=== PATIENT | female | born 1930 | race Caucasian/White ===

== ENCOUNTER → 2016-08-24 | Outpatient (CLI) | payer OTHER, MEDICARE ==
[~2016-08-24] MED LIST: AMLO-110 PO; AMLO-114 PO; CALC-20 PO; CALC600T PO; CARV6.252 PO; CPR/500 PO; FRRS300 PO; FRS/40 PO; KFL500 PO; LEVO100T7 PO; LEVO112T4 PO; MTR500 PO; MULT-506 PO; OXYC1TAB3 PO; PRVC/20 PO; WARF-283 PO
[2016-08-24 12:59] LABS: THYROID STIMULATING HORMONE 2.29 uIu/ml (0.300-4.500)
== END | disposition home or self-care (01) ==
LOC: C.LABBFT 11:06
PROVIDERS: ATTEND Physician Assistant Medical
DX: R19.7 Diarrhea, unspecified (principal)

== ENCOUNTER → 2016-08-25 | Outpatient (CLI) | payer OTHER, MEDICARE | END | disposition home or self-care (01) | LOC: C.LABSPEC 12:25 | PROVIDERS: ATTEND Physician Assistant Medical | DX: R19.7 Diarrhea, unspecified (principal) ==

== ENCOUNTER → 2016-09-19 | Outpatient (CLI) | payer OTHER, MEDICARE ==
[2016-09-19 12:38] LABS: CHOLESTEROL/HDL RATIO 2.2
== END | disposition home or self-care (01) ==
LOC: C.LABBFT 11:03
PROVIDERS: ATTEND Internal Medicine
DX: E78.00 Pure hypercholesterolemia, unspecified (principal)

== ENCOUNTER → 2016-10-20 | Outpatient (CLI) | payer OTHER, MEDICARE ==
[2016-10-20 17:26] LABS: HEMATOCRIT 42.3 % (37-47); MEAN CELL VOLUME 93.4 fL (80-100); MEAN CORPUSCULAR HEMOGLOBIN 31.6 pg (25-34); MEAN CORPUSCULAR HGB CONC 33.8 g/dl (32-36); MEAN PLATELET VOLUME 10.8 fL (7.4-10.4); PLATELET COUNT 194 K/uL (130-400); RED BLOOD COUNT 4.53 M/uL (4.2-5.4); WHITE BLOOD COUNT 3.95 K/uL (4.8-10.8)
[2016-10-20 17:36] LABS: PARTIAL THROMBOPLASTIN RATIO 1.4; PROTHROMBIN TIME (PATIENT) 22.2 SECONDS (9.0-12.0)
[2016-10-20 17:44] LABS: BLOOD UREA NITROGEN 17 mg/dl (7-18); BUN/CREATININE RATIO 17.9 (10-20); CALCIUM 8.6 mg/dl (8.5-10.1); CARBON DIOXIDE 33 mmol/L (21-32); CHLORIDE 105 mmol/L (98-107); CREATININE 0.93 mg/dl (0.60-1.20); GLUCOSE 103 mg/dl (70-99); POTASSIUM 4.2 mmol/L (3.5-5.1); SODIUM 142 mmol/L (136-145)
== END | disposition home or self-care (01) ==
LOC: C.LABBFT 15:13
PROVIDERS: ATTEND Internal Medicine Cardiovascular Disease
DX: Z01.810 Encounter for preprocedural cardiovascular examination (principal)

== ENCOUNTER 2016-11-03 06:08 | Observation (INO) | payer OTHER, MEDICARE ==
[~2016-11-03] VITALS: Ht 167.6 cm; Wt 83.9 kg
[~2016-11-03 06:08] MED LIST changes: -AMLO-114 PO; -CALC-20 PO; -CARV6.252 PO; +CEFAZOLIN 1000MG/55 ML D5W IV SCH; -CPR/500 PO; -FRRS300 PO; -FRS/40 PO; -KFL500 PO; +LACTATED RINGER'S 1000ML 1,000 ML IV SCH; -LEVO112T4 PO; -MTR500 PO
[2016-11-03] MEDS ORDERED: FRS/40 PO (06:48)
[2016-11-03 06:51] VITALS: BP_SYST 200; BP_SYST 201; BP_DIAS 74; PULSE 56; TEMP 36.5; O2SAT 95
[2016-11-03 07:06] LABS: INR 1.1 (0.9-1.1); PROTHROMBIN TIME (PATIENT) 11.3 SECONDS (9.0-12.0)
[2016-11-03] MEDS ORDERED: BACITRACIN OINT 0.9 GM PKT ONE (07:31)
[2016-11-03] MEDS ORDERED: LIDOCAINE HCL 1% 20 ML VIAL ONE (07:31)
[2016-11-03] MEDS ORDERED: BACITRACIN 50000 UNIT VIAL ONE (07:31)
--- NOTE | 2016-11-03 08:35 | Procedure Note ---
Pre-Mod Sedation Assessment General Date of Moderate Sedation: Nov 03, 2016. Vital Signs: Vital Signs Past 12 Hours Date Time Temp Pulse Resp B/P (MAP) Pulse Ox O2 Delivery O2 Flow Rate FiO2 11/03/16 06:51 36.5 56 22 201/74 (116) 95 Room Air Review Cardiovascular: regular rate, rhythm, + systolic murmur Abdomen: normal bowel sounds, non tender Lungs: lungs clear Pre-Sedation Airway Assessment Oral Cavity: WNL Short Thick Neck: No Hx of Sleep Apnea: No Smoking Status: Never Smoker Procedure Planning Contraindications-for Mod Sed: None Yes Notes The planned sedation has been discussed with the patient and consent obtained. I have identified the patient, determined the appropriateness of sedation and have assessed the patient immediately prior to the procedure. All medicine(s) and interventions are by my order.
[2016-11-03] MEDS ORDERED: MIDAZOLAM HCL 5 MG/ML 1 ML VIAL ONE (08:54)
[2016-11-03] MEDS ORDERED: FENTANYL CITRATE INJ 50 MCG/1 ML 2 ML VIAL ONE (08:54)
--- NOTE | 2016-11-03 10:10 | Cardiology Procedure Brief Nt ---
Preliminary Cardiology Note Procedure Date Nov 03, 2016. Pre-Procedure Diagnosis sick sinus syndrome Post-Procedure Diagnosis same Procedure(s) Performed Left subclavian venogram Dual chamber pacemaker implantation [employer] Specialist Dr. Mack Sales Account Coordinator(s) none Estimated Blood Loss 50 cc Preliminary Findings Good lead position, good measurements Recommendations Monitor overnight Specimens None Anesthesia local with sedation Complication(s) None Disposition PCU
[2016-11-03] MEDS ORDERED: ACETAMINOPHEN 325 MG TAB PO PRN (10:15)
[2016-11-03] MEDS ORDERED: ACETAMINOPHEN/CODEINE 300/30MG TAB PO PRN (10:15)
--- NOTE | 2016-11-03 10:16 | Procedure Note ---
Post-Mod Sedation Assessment General Date of Moderate Sedation Nov 03, 2016. Vital Signs: Vital Signs Past 12 Hours Date Time Temp Pulse Resp B/P (MAP) Pulse Ox O2 Delivery O2 Flow Rate FiO2 11/03/16 10:03 16 153/76 (101) 98 Nasal Cannula 6 11/03/16 06:51 36.5 56 22 201/74 (116) 95 Room Air Review - Discharge Criteria Vital Signs Stable: Yes Alert/Oriented/Conversant: Yes Returned to Baseline Mental St: Yes Nausea Absent/Minimal: Yes Pain/Discomfort/Absent/Minimal: Yes Normal/Baseline Respirations: Yes Active Bleeding?: No
[2016-11-03 11:22] VITALS: BP 174/75; PULSE 60; TEMP 36.6; O2SAT 91; Ht 167.6 cm; Wt 83.9 kg
[2016-11-03 11:31] VITALS: BP 170/76; PULSE 60; TEMP 36.5; O2SAT 93
[2016-11-03] MEDS ORDERED: IV FLUIDS COMPLETED PRN (11:45)
--- NOTE | 2016-11-03 13:16 | OPERATIVE REPORT ---
DATE OF OPERATION: 11/03/2016 AMBULATORY OPERATIVE REPORT PREOPERATIVE DIAGNOSIS: Sick sinus syndrome (sinus bradycardia and atrial fibrillation). POSTOPERATIVE DIAGNOSIS: Same. PROCEDURES: 1. Left subclavian venogram. 2. Dual chamber pacemaker implantation. SURGEON: Fuentes Mack M.D. ANESTHESIA: Local with sedation. HISTORY: This is an 86-year-old woman who has a history of paroxysmal atrial fibrillation as well as sinus bradycardia. Atrial fibrillation has been documented on several occasions, she is maintained on warfarin. Generally, she is in sinus rhythm; however, with bradycardia. Holter monitoring done on 08/29/2016 showed a heart rate range from 25 beats per minute to 61 with an average of 42 beats per minute, 34 pauses in excess of 2.5 seconds, the longest RR interval being 4.2 seconds. She is also less active than she has been in the past, possibly due to bradycardia. We discussed pacemaker implantation, she wanted to think about it but has decided to go ahead. She is therefore brought to laboratory for pacemaker implantation. OPERATION AND FINDINGS: After obtaining informed consent for the procedure, she was brought to the laboratory on the morning of 11/03/2016, being n.p.o. after midnight. She was identified in the laboratory, prepped and draped in standard sterile manner for a left-sided pacemaker implantation. The left prepectoral region was anesthetized with 1% lidocaine local anesthetic and left subclavian venipuncture was attempted by percutaneous technique. The subclavian artery was entered twice, pressure was held and there appeared to be no complication. X-ray dye was therefore injected via the left arm IV site to opacify the left subclavian vein which was patent but somewhat lower than expected. Once identified, left subclavian venipuncture was performed without difficulty and a guidewire placed through the left subclavian vein into the superior vena cava. The area was further infiltrated with 1% lidocaine local anesthetic and a 6 cm incision was made parallel to the left clavicle and 2 cm below it and carried down to the anterior pectoralis fascia. A pacemaker pocket was formed by blunt dissection anterior to the pectoralis fascia and a bacitracin-soaked sponge was placed in the pocket. An 8-[place] Medtronic lead introducer was placed over the guidewire into the left subclavian vein, the dilator and guidewire were removed and a bipolar active fixation steroid-tipped ventricular lead was advanced through the introducer into the superior vena cava. The guidewire was placed through the introducer and introducer stripped away from lead and guidewire. Another 8-[place] Medtronic lead introducer was placed over the guidewire into the left subclavian vein, the dilator and guidewire were removed and a bipolar active fixation steroid-tipped atrial lead was advanced through the introducer into the superior vena cava. The guidewire was placed through the introducer and introducer stripped away from lead and guidewire. Using a curved stylette, the ventricular lead was advanced through the right ventricular outflow tract into the pulmonary artery and then using a straight stylette was positioned in the right ventricular apex. Once in position, the ventricular pacing threshold was evaluated in bipolar configuration at a pulse width of 0.5 milliseconds. The final ventricular pacing threshold was 0.4 volts with a current of 0.9 milliamp, 5-volt lead impedance was 945 ohms and R-waves were sensed at 4.9 millivolts. Diaphragmatic pacing was not present with a 10-volt bipolar output. The atrial lead was then positioned in the region of the atrial appendage and screw extended, fixing the lead in position. Atrial pacing threshold was evaluated in bipolar configuration at a pulse width of 0.5 milliseconds. Final atrial pacing threshold was 1.0 volts with a current of 1.6 milliamp, 5-volt lead impedance was 729 ohms and P-waves were sensed at 1.1 millivolts. Diaphragmatic pacing was not present with 10-volt bipolar output. Once leads were in position, they were attached to the anterior pectoralis fascia using 2 sutures of 2-0 silk around each lead collar. The bacitracin-soaked sponge was removed from the pocket, the guidewire was removed from the left subclavian vein and hemostasis was obtained. The pacemaker (Medtronic Advisa DR) was attached to the leads and found to be functioning normally. It was placed in the pocket with the leads coiled beneath it and the incision was closed with a running double subcutaneous closure of V-Loc absorbable suture, followed by running subcuticular skin closure of 4-0 V-Loc absorbable suture. Bacitracin ointment was placed on incision and a pressure dressing applied. The patient tolerated the procedure well, there were no complications and estimated blood loss was 50 mL. The patient returned to the telemetry unit for monitoring. The atrial lead is a Medtronic model 5076, serial #[id number] and is a bipolar active fixation steroid-tipped MRI compatible lead. The ventricular lead is a Medtronic model 5076, serial #[id number] and is a bipolar active fixation steroid-tipped MRI compatible lead. The pacemaker is a Medtronic Advisa DR MRI SureScan model A2DR01, serial #[id number]. The pacemaker was reprogrammed in the laboratory to final settings. JAYCEE
[2016-11-03 15:13] VITALS: BP 161/68; PULSE 60; TEMP 36.7; O2SAT 95
[2016-11-03] MEDS: CEFAZOLIN IV 2,000 MG in DEXTROSE 5% 50ML 50 ML IV SCH ×2 (15:53→23:40)
[2016-11-03 19:41] VITALS: BP 152/74; PULSE 62; TEMP 36.8; O2SAT 94
[2016-11-03] MEDS ORDERED: PRAVASTATIN SOD 20 MG TAB PO SCH (21:00)
[2016-11-03] MEDS ORDERED: WARFARIN SOD 4 MG TAB PO SCH (21:00)
[2016-11-03 23:38] VITALS: BP 166/74; PULSE 58; TEMP 36.8; O2SAT 93
[2016-11-04 04:05] VITALS: BP 181/73; PULSE 62; TEMP 36.7; O2SAT 95
[2016-11-04] MEDS ORDERED: LEVOTHYROXINE 100 MCG TAB PO SCH (06:00)
[2016-11-04 06:03] VITALS: BP 179/80
[2016-11-04 06:09] LABS: INR 1.1 (0.9-1.1); PROTHROMBIN TIME (PATIENT) 11.4 SECONDS (9.0-12.0)
--- NOTE | 2016-11-04 07:00 | DIAGNOSTIC IMAGING REPORT ---
CHEST 2 VIEWS ROUTINE CLINICAL HISTORY: Chest x-ray status post pacemaker placement COMPARISON STUDY: 11/25/2015 FINDINGS: The heart is the upper limits of normal in size. There has been interval placement of a left subclavian dual-chamber central venous pacemaker. There is no pneumothorax. The electrode position is unremarkable. There is no failure. There are no pleural effusions. There is stable aortic tortuosity/ectasia. Scattered chronic interstitial densities remain similar.[ IMPRESSION: No evidence of pneumothorax status post placement of a dual-chamber left subclavian central venous pacemaker. Electronically signed by: Ger Smith M.D. 11/04/2016 6:59 AM Dictated Date/Time: 11/04/2016 6:58 AM
[2016-11-04 07:51] VITALS: BP 184/73; PULSE 61; TEMP 36.4; O2SAT 95
[2016-11-04] MEDS: CEFAZOLIN IV 2,000 MG in DEXTROSE 5% 50ML 50 ML IV SCH (08:39)
[2016-11-04] MEDS ORDERED: AMLODIPINE BESYLATE 5 MG TAB PO SCH (09:00)
[2016-11-04] MEDS ORDERED: FUROSEMIDE 40 MG TAB PO SCH (09:00)
--- NOTE | 2016-11-04 10:22 | Discharge Instructions ---
Discharge Instructions Date of Service Nov 04, 2016. Admission Sick Sinus Syndrome Discharge Discharge Diagnosis / Problem: S/P Dual-chamber pacemaker implantation Discharge Goals Goal(s): Improve disease control Activity Recommendations Activity Limitations: as noted below ACTIVITY RECOMMENDATIONS: * Do not raise affected arm over head for 2 weeks. SPECIAL CARE INSTRUCTIONS: * If bleeding occurs, apply direct pressure to area for 5 minutes. * Call your doctor if you have severe pain, fever, drainage or bleeding at site. * Keep dressing on and dry for 48 hours then remove. * Keep any scheduled doctor's appointment. * Implant Card - hand held device with website information given. SKIN IRRITATION: * You may experience some redness and/or swelling in the area where radiation was administered. If any skin irritation occurs, please contact your family physician. FOLLOW UP VISIT: 11/07/16 @ 10:00 am Check your INR on 11/09/16 . Current Hospital Diet Patient's current hospital diet: AHA Diet (Heart Healthy) Discharge Diet Recommended Diet: AHA Diet (Heart Healthy) Pending Studies Studies pending at discharge: no Laboratory Results Lipid Panel Test 09/19/16 11:07 Range/Units Triglycerides Level 99 0-150 mg/dl Cholesterol Level 174 0-200 mg/dl HDL Cholesterol 78 mg/dl Cholesterol/HDL Ratio 2.2 LDL Cholesterol, Calculated 76 mg/dl Medical Emergencies . Who to Call and When: Medical Emergencies: If at any time you feel your situation is an emergency, please call 911 immediately. . Non-Emergent Contact Non-Emergency issues call your: Sand Cutting Machine Operator . . "Provider Documentation" section prepared by Cindi Simmons. . VTE Core Measure Inpt VTE Proph given/why not?: Treatment not indicated
[2016-11-04] MEDS ORDERED: AMLO-114 PO (10:35)
[2016-11-04] MEDS ORDERED: CARV6.252 PO (10:35)
[2016-11-04 11:18] VITALS: BP 160/76; PULSE 60; TEMP 36.6; O2SAT 95
--- NOTE | 2016-11-04 12:40 | Discharge Summary ---
Discharge Summary Admission Date: Nov 03, 2016 at 10:13 Discharge Date: Nov 04, 2016 Discharge Disposition: Home Primary Diagnosis: Sick sinus syndrome Procedures: Dual-chamber pacemaker implantation Discharge Instructions Last Recorded Wt (Kilograms): 83.900 Activity Recommendations: limitations as noted below Diet At Discharge: resume previous diet Allergies: Coded Allergies: Solifenacin (Verified Allergy, Intermediate, "throat and tongue swelled up ", 11/03/16) Rofecoxib (Verified Allergy, Unknown, RASH, 11/03/16) Additional Instructions: ACTIVITY RECOMMENDATIONS: * Do not raise affected arm over head for 2 weeks. SPECIAL CARE INSTRUCTIONS: * If bleeding occurs, apply direct pressure to area for 5 minutes. * Call your doctor if you have severe pain, fever, drainage or bleeding at site. * Keep dressing on and dry for 48 hours then remove. * Keep any scheduled doctor's appointment. * Implant Card - hand held device with website information given. SKIN IRRITATION: * You may experience some redness and/or swelling in the area where radiation was administered. If any skin irritation occurs, please contact your family physician. FOLLOW UP VISIT: Keep any scheduled doctor appointments. Special Care: Call your doctor if: * Temperature above 101 degrees * Pain not relieved by pain medicine ordered * There is increased drainage or redness from any incision * You have any unanswered questions or concerns. Avoid all tobacco products. If you need help to stop smoking, call [place]'s FREE QUITLINE at . This is a free call. Admission HPI She returns now continuing to feel relatively well. She denies symptoms of lightheadedness, dizziness, presyncope or syncope and additionally has no difficulty with exertion including chest discomfort, shortness of breath or undue fatigue. She does admit that she may be slowing down more than before and she may just be accommodating to the inability to perform physical activities. A 24-hour Holter monitor was performed on 08/29/2016. This showed a heart rate range from 25 bpm to 61 bpm with an average of 42 bpm. 34 pauses in excess of 2- 1/2 seconds were observed, these were sinus pauses. There was one RR interval of 4.2 seconds. With this severe and progressive bradycardia we felt the pacemaker was indicated. She is therefore scheduled for pacemaker implantation today. Admission Physical Exam Constitutional: Alert, cooperative and in no distress. HEENT: Unremarkable Neck: No jugular venous distention, carotid pulses are normal and equal bilaterally without bruits. Pulmonary: Clear to auscultation bilaterally. Cardiac: Regular slow rhythm with no murmur, gallop or rub. Abdomen: Soft, nontender with normal bowel sounds. Extremities: No edema. Distal pulses intact. Neurologic: No focal findings. Gait is steady. Skin: No rash, ecchymoses or petechiae. Hospital Course Patient is an 86-year-old female with a history of atrial fibrillation and sick sinus syndrome who underwent dual-chamber pacemaker implantation on 11/03/[address] Mack. She tolerated the procedure well. Device check the following day showed excellent sensing and pacing characteristics. CXR showed no evidence of pneumothorax. She was discharged home on 11/04/16 in stable condition. She was hypertensive throughout her hospital stay, therefore, Carvedilol 6.25 mg BID was prescribed, which she will begin as an outpatient. Her Coumadin was restarted, and she will have an INR check in 5 days. She will also have incision check in 2 days and device check in 1 month. Total time spent on discharge = This includes examination of the patient, discharge planning, medication reconciliation, and communication with other providers.
--- NOTE | 2016-11-04 12:48 | Cardiology Follow-Up ---
Subjective Date of Service: Nov 04, 2016. Pt evaluation today including: conversation w/ patient, physical exam, chart review, lab review, review of studies, review of inpatient medication list, conversation w/ attending History of Present Illness She is feeling well and is anxious to go home. She has not had any bleeding from her incision site. She denies chest pain, shortness of breath, palpitations, or lightheadedness. Social History Smoking Status: Never Smoker History of Alcohol Use: No Objective Vital Signs Past 12 Hours Date Time Temp Pulse Resp B/P (MAP) Pulse Ox O2 Delivery O2 Flow Rate FiO2 11/04/16 11:18 36.6 60 18 160/76 (104) 95 Room Air 11/04/16 11:09 36.4 61 20 95 Room Air 11/04/16 08:00 Room Air 11/04/16 07:51 36.4 61 20 184/73 (110) 95 Room Air 11/04/16 06:03 179/80 (113) 11/04/16 04:05 36.7 62 18 181/73 (109) 95 Room Air 11/04/16 04:00 Room Air Last Recorded Weight-Kilograms: 83.900 Intake & Output 8-Hour Column 11/04/16 11/05/16 11/05/16 16:00 00:00 08:00 Intake Total 360 ml Output Total 400 ml Balance -40 ml 24-Hour Column 11/05/16 08:00 Intake Total 360 ml Output Total 400 ml Balance -40 ml Physical Exam Constitutional: General Apperance: heathly-appearing Level of Distress: NAD Lungs: Respiratory effort: good air movement Auscultation: breath sounds normal Cardiovascular: Heart Auscultation: RRR, normal S1, normal S2, no murmurs Extremities: no edema Data Laboratory Results: Last 24 Hours Test 11/04/16 05:25 Prothrombin Time 11.4 SECONDS Prothromb Time International Ratio 1.1 CXR: No evidence of pneumothorax status post placement of a dual-chamber left subclavian central venous pacemaker. EKG: Atrial paced rhythm with prolonged AV conduction. 60 bpm. Left axis deviation. LVH with QRS widening and repolarization abnormality. Device check: Functioning properly with excellent sensing and pacing characteristics. Assessment and Plan Patient is s/p dual-chamber pacemaker implantation. She is feeling well this morning with no complaints. CXR shows no pneumothorax. Device is functioning normally. Will plan discharge home today, and she will follow-up for wound check and device check as an outpatient. A script for Carvedilol has been sent to her pharmacy given her elevated blood pressure readings throughout the hospitalization. Procedures: Dual-chamber pacemaker implantation
[2017-04-23] MEDS ORDERED: KFL500 PO (14:42)
[2017-04-23] MEDS ORDERED: FRRS300 PO (14:42)
== END 2016-11-04 15:44 | disposition home or self-care (01) ==
LOC: C.ACU 06:08 → CANRESERV 09:56 → ENRESERV 09:56 → C.2T 10:13
PROVIDERS: ADMIT Internal Medicine Cardiovascular Disease; ATTEND Internal Medicine Cardiovascular Disease
DX: I49.5 Sick sinus syndrome (principal); I48.0 Paroxysmal atrial fibrillation; M19.90 Unspecified osteoarthritis, unspecified site; E78.00 Pure hypercholesterolemia, unspecified; I10 Essential (primary) hypertension; E03.9 Hypothyroidism, unspecified; G25.81 Restless legs syndrome; Z79.01 Long term (current) use of anticoagulants; Z86.19 Personal history of other infectious and parasitic diseases; Z96.659 Presence of unspecified artificial knee joint; Z82.49 Family history of ischemic heart disease and other diseases of the circulatory system

== ENCOUNTER → 2017-01-31 | Outpatient (CLI) | payer OTHER, MEDICARE ==
[~2017-01-31] MED LIST changes: -AMLO-110 PO; +AMLO-114 PO; +CARV6.252 PO; -CEFAZOLIN 1000MG/55 ML D5W IV SCH; +FRS/40 PO; -LACTATED RINGER'S 1000ML 1,000 ML IV SCH; -OXYC1TAB3 PO
[2017-01-31 17:33] LABS: ALT/SGPT 16 U/L (12-78); BLOOD UREA NITROGEN 20 mg/dl (7-18); CALCIUM 9.8 mg/dl (8.5-10.1); CARBON DIOXIDE 30 mmol/L (21-32); CHLORIDE 103 mmol/L (98-107); CHOLESTEROL 149 mg/dl (0-200); GLUCOSE 86 mg/dl (70-99); POTASSIUM 3.8 mmol/L (3.5-5.1); SODIUM 138 mmol/L (136-145)
[2017-01-31 17:36] LABS: ALB/GLOB RATIO 0.9 (0.9-2); ALKALINE PHOSPHATASE 105 U/L (45-117); AST/SGOT 21 U/L (15-37); CHOLESTEROL/HDL RATIO 2.4; HDL CHOLESTEROL 61 mg/dl; LDL CHOLESTEROL CALCULATED 70 mg/dl; TRIGLYCERIDES 88 mg/dl (0-150); VERY LOW DENSITY LIPOPROT CALC 18 mg/dl
== END | disposition home or self-care (01) ==
LOC: C.LABBFT 11:39
PROVIDERS: ATTEND Internal Medicine
DX: E78.00 Pure hypercholesterolemia, unspecified (principal); E03.9 Hypothyroidism, unspecified; I10 Essential (primary) hypertension; I48.91 Unspecified atrial fibrillation

== ENCOUNTER → 2017-03-30 | Outpatient (CLI) | payer OTHER, MEDICARE | END | disposition home or self-care (01) | LOC: C.LABBFT 12:20 | PROVIDERS: ATTEND Internal Medicine | DX: R19.7 Diarrhea, unspecified (principal) ==

== ENCOUNTER → 2017-03-30 | Outpatient (CLI) | payer OTHER, MEDICARE ==
[2017-03-30 12:44] LABS: BASO % 0.5 %; BASO ABS # 0.02 K/uL (0-0.2); COMPLETE YES; EOS % 1.3 %; LYMPH % 23.6 %; LYMPH ABS # 0.88 K/uL (1.2-3.4); MEAN CELL VOLUME 93.5 fL (80-100); MEAN CORPUSCULAR HEMOGLOBIN 31.4 pg (25-34); MEAN CORPUSCULAR HGB CONC 33.6 g/dl (32-36); MONO % 23.9 %; NEUT % 50.7 %; PLATELET COUNT 186 K/uL (130-400); RED BLOOD COUNT 4.49 M/uL (4.2-5.4); WHITE BLOOD COUNT 3.73 K/uL (4.8-10.8)
[2017-03-30 13:00] LABS: ALT/SGPT 14 U/L (12-78); BLOOD UREA NITROGEN 17 mg/dl (7-18); BUN/CREATININE RATIO 17.6 (10-20); CALCIUM 9.1 mg/dl (8.5-10.1); CARBON DIOXIDE 29 mmol/L (21-32); CHLORIDE 104 mmol/L (98-107); CREATININE 0.94 mg/dl (0.60-1.20); GLUCOSE 96 mg/dl (70-99); POTASSIUM 3.8 mmol/L (3.5-5.1); SODIUM 139 mmol/L (136-145)
[2017-03-30 13:11] LABS: ALB/GLOB RATIO 0.8 (0.9-2); ALKALINE PHOSPHATASE 104 U/L (45-117); AST/SGOT 18 U/L (15-37)
== END | disposition home or self-care (01) ==
LOC: C.LABBFT 10:12
PROVIDERS: ATTEND Physician Assistant Medical
DX: R19.7 Diarrhea, unspecified (principal)

== ENCOUNTER → 2017-04-19 | Outpatient (CLI) | payer OTHER, MEDICARE ==
[~2017-04-19] MED LIST changes: +CALC-20 PO; +CPR/500 PO; +FRRS300 PO; +KFL500 PO; +LEVO112T4 PO; +MTR500 PO
[2017-04-19 13:21] LABS: MEAN CELL VOLUME 92.9 fL (80-100); MEAN CORPUSCULAR HEMOGLOBIN 30.9 pg (25-34); MEAN CORPUSCULAR HGB CONC 33.2 g/dl (32-36); MEAN PLATELET VOLUME 10.2 fL (7.4-10.4); PLATELET COUNT 233 K/uL (130-400); RED BLOOD COUNT 3.66 M/uL (4.2-5.4); WHITE BLOOD COUNT 5.03 K/uL (4.8-10.8)
[2017-04-19 13:44] LABS: PROTHROMBIN TIME (PATIENT) 57.5 SECONDS (9.0-12.0)
== END | disposition home or self-care (01) ==
LOC: C.LAB1850 11:58
PROVIDERS: ATTEND Physician Assistant
DX: R19.7 Diarrhea, unspecified (principal)

== ENCOUNTER 2017-04-20 13:16 | Inpatient (IN) | payer OTHER, MEDICARE ==
[2017-04-20] VITALS (11 sets, daily range): BP systolic 131–150; BP diastolic 59–85; PULSE 60–70; TEMP 36.5–37.1; O2SAT 94–98; Ht 167.6 cm; Wt 87.9 kg
[~2017-04-20] VITALS: Ht 167.6 cm; Wt 87.9 kg
[~2017-04-20 13:16] MED LIST changes: -CALC-20 PO; -CPR/500 PO; -FRRS300 PO; -KFL500 PO; -LEVO112T4 PO; -MTR500 PO
[2017-04-20] MEDS ORDERED: SODIUM CHLORIDE 0.9% 1000ML 1,000 ML IV STA (13:31)
[2017-04-20] MEDS ORDERED: LEVO112T4 PO (14:10)
[2017-04-20] MEDS ORDERED: MTR500 PO (14:10)
[2017-04-20] MEDS ORDERED: CALC-20 PO (14:10)
[2017-04-20] MEDS ORDERED: CPR/500 PO (14:10)
--- NOTE | 2017-04-20 14:16 | DIAGNOSTIC IMAGING REPORT ---
CHEST ONE VIEW PORTABLE CLINICAL HISTORY: EVALUATE GI BLEED chest pain COMPARISON STUDY: 11/03/2016 FINDINGS: Lungs are clear. A permanent bipolar cardiac pacemaker. Diaphragms are smooth. Costophrenic angles sharp. IMPRESSION: No acute process. The above report was generated using voice recognition software. It may contain grammatical, syntax or spelling errors. Electronically signed by: Slava Regalado M.D. 04/20/2017 2:15 PM Dictated Date/Time: 04/20/2017 2:00 PM
[2017-04-20 14:22] LABS: HEMATOCRIT 24.4 % (37-47); MEAN CELL VOLUME 92.1 fL (80-100); MEAN CORPUSCULAR HEMOGLOBIN 31.7 pg (25-34); MEAN CORPUSCULAR HGB CONC 34.4 g/dl (32-36); MEAN PLATELET VOLUME 9.9 fL (7.4-10.4); PLATELET COUNT 214 K/uL (130-400); RED BLOOD COUNT 2.65 M/uL (4.2-5.4); WHITE BLOOD COUNT 5.96 K/uL (4.8-10.8)
[2017-04-20 14:25] LABS: PARTIAL THROMBOPLASTIN RATIO 1.7; PROTHROMBIN TIME (PATIENT) 59.6 SECONDS (9.0-12.0)
[2017-04-20 14:27] LABS: BUN/CREATININE RATIO 16.1 (10-20); CALCIUM 8.5 mg/dl (8.5-10.1); CREATININE 1.09 mg/dl (0.60-1.20); POTASSIUM 3.4 mmol/L (3.5-5.1)
[2017-04-20 14:28] LABS: BASO ABS # 0.06 K/uL (0-0.2); COMPLETE YES; EOS % 0.3 %; IG% 0.3 %; LYMPH % 16.6 %; LYMPH ABS # 0.99 K/uL (1.2-3.4); MONO % 11.4 %; NEUT % 70.4 %
[2017-04-20] MEDS ORDERED: PHYTONADIONE INJ 10 MG in SODIUM CHLORIDE 0.9% 50ML 50 ML IV ONE (14:30)
[2017-04-20 14:36] LABS: INR 5.2 (0.9-1.1)
[2017-04-20] MEDS ORDERED: SODIUM CHLORIDE 0.9% 1000ML 1,000 ML IV SCH (15:17)
[2017-04-20] MEDS ORDERED: ACETAMINOPHEN 325 MG TAB PO PRN (15:30)
[2017-04-20] MEDS ORDERED: POLYETHYLENE (MIRALAX) 17 GM PACK PO PRN (15:30)
[2017-04-20] MEDS ORDERED: ALUMINUM/MAGNESIUM/SIMETH (MAALOX MAX) 30 ML UDC PO PRN (15:30)
[2017-04-20] MEDS ORDERED: MAGNESIUM HYDROXIDE SUSP 30 ML UDC PO PRN (15:30)
[2017-04-20] MEDS ORDERED: ONDANSETRON INJ 2 MG/ML 2 ML VIAL IV PRN (15:30)
--- NOTE | 2017-04-20 15:37 | History and Physical ---
History & Physical Date & Time of Service: Apr 20, 2017 at 15:34 Chief Complaint: Bloody Bowels-Reffered By Primary Care Physician: Rafael Glez M.D. History of Present Illness Source: patient Ms. Pascual is an 86 y/o female with PMHx of Paroxysmal Atrial Fibrillation, Sick Sinus Syndrome S/P Pacemaker, HTN, HLD, Hypothyroidism, and CKD Stage III who presents to the ED c/o hematochezia that started Monday. Patient reports she has had ongoing loose stool/diarrhea for approx 1 month. She was treated with Cipro and Flagyl which was recently stopped on 04/18. Outpatient labs without evidence of C. diff or infectious findings. On Monday night she developed gross hematochezia x 2 episodes. She stopped her Coumadin that night but had 5 episodes on Monday. She continued to hold her Coumadin and has had 2 episodes today. She sensed her INR was elevated and stated she ate 2 bowls of broccoli to help reduce the number. She was seen by her PCP for labs yesterday which Hgb was 11.3 and currently down to 8.4 in the ED. Her INR is 5.2. She complains of generalized fatigue but denies lightheadedness/dizziness, SOB, or chest pain. She began having dry heaves this AM which have subsided. She had a colonoscopy approx [address] Dickson and reports she had early signs of diverticulosis. She thinks she has had hemorrhoids on and off but never had issues with them. She denies H/O GI disorders such as Crohns or UC. She denies any abdominal pain and no pain with defecation. Past Medical/Surgical History 1. Paroxysmal Atrial Fibrillation 2. Sick Sinus Syndrome S/P Pacer 3. HTN 4. HLD 5. Hypothyroidism 6. CKD Stage III Family History FHx: cancer FHx: heart disease Social History Smoking Status: Never Smoker Smokeless Tobacco Use: No Alcohol Use: none Drug Use: none Marital Status: Immunizations History of Influenza Vaccine: Yes History of Tetanus Vaccine?: Yes History of Pneumococcal: No History of Hepatitis B Vaccine: No Multi-Drug Resistant Organisms History of MDRO: No Allergies Coded Allergies: Solifenacin (Verified Allergy, Intermediate, "throat and tongue swelled up ", 04/20/17) Rofecoxib (Verified Allergy, Unknown, RASH, 04/20/17) Home Medications Scheduled Amlodipine (Norvasc), 10 MG PO DAILY Calcium Carbonate-Vitamin D (Calcium 600 + D), 1 TAB PO DAILY Carvedilol (Coreg), 1 TAB PO BID Furosemide (Lasix), 20 MG PO QAM Levothyroxine Sodium (Levothyroxine Sodium), 112 MCG PO DAILY Multivitamin (Multivitamin), 1 TAB PO DAILY Pravastatin Sod (Pravastatin Sodium), 20 MG PO HS Warfarin Sodium (Warfarin Sodium), 4 MG PO HS Review of Systems Constitutional: + fatigue, No fever, No chills Respiratory: No cough, No shortness of breath Cardiovascular: No chest pain, No palpitations Abdomen: + nausea (dry heaves), + diarrhea, + GI bleeding (hematochezia), No pain, No vomiting, No constipation Musculoskeletal: No swelling, No calf pain Genitourinary - Female: + problem reported (cystocele), No dysuria Hematologic / Lymphatic: No clotting problems Integumentary: No rash, No new/changing skin lesions Physical Exam Vital Signs Date Time Temp Pulse Resp B/P (MAP) Pulse Ox O2 Delivery O2 Flow Rate FiO2 04/20/17 15:01 61 18 185/85 97 04/20/17 14:56 63 19 98 04/20/17 14:51 154/62 04/20/17 14:41 64 20 97 04/20/17 14:26 60 18 97 04/20/17 14:11 59 14 97 04/20/17 14:06 61 19 97 04/20/17 14:01 56 24 96 04/20/17 13:58 65 04/20/17 13:56 142/60 04/20/17 13:47 99 Room Air 04/20/17 13:23 36.9 71 18 119/81 99 Room Air General Appearance: WD/WN, no apparent distress Head: normocephalic, atraumatic Eyes: sclerae normal ENT: hearing grossly normal Neck: supple, no JVD, trachea midline Respiratory/Chest: lungs clear, normal breath sounds, no respiratory distress, no accessory muscle use Cardiovascular: regular rate, rhythm, + systolic murmur Abdomen/GI: normal bowel sounds, non tender, soft Extremities/Musculoskelatal: no calf tenderness, no pedal edema Neurologic/Psych: alert, oriented x 3 Skin: normal color, warm/dry Diagnostics Laboratory Results Results Past 24 Hours Test 04/20/17 13:48 Range/Units White Blood Count 5.96 4.8-10.8 K/uL Red Blood Count 2.65 4.2-5.4 M/uL Hemoglobin 8.4 12.0-16.0 g/dL Hematocrit 24.4 37-47 % Mean Corpuscular Volume 92.1 80-100 fL Mean Corpuscular Hemoglobin 31.7 25-34 pg Mean Corpuscular Hemoglobin Concent 34.4 32-36 g/dl Platelet Count 214 130-400 K/uL Mean Platelet Volume 9.9 7.4-10.4 fL Neutrophils (%) (Auto) 70.4 % Lymphocytes (%) (Auto) 16.6 % Monocytes (%) (Auto) 11.4 % Eosinophils (%) (Auto) 0.3 % Basophils (%) (Auto) 1.0 % Neutrophils # (Auto) 4.19 1.4-6.5 K/uL Lymphocytes # (Auto) 0.99 1.2-3.4 K/uL Monocytes # (Auto) 0.68 0.11-0.59 K/uL Eosinophils # (Auto) 0.02 0-0.5 K/uL Basophils # (Auto) 0.06 0-0.2 K/uL RDW Standard Deviation 55.4 36.4-46.3 fL RDW Coefficient of Variation 16.4 11.5-14.5 % Immature Granulocyte % (Auto) 0.3 % Immature Granulocyte # (Auto) 0.02 0.00-0.02 K/uL Prothrombin Time 59.6 9.0-12.0 SECONDS Prothromb Time International Ratio 5.2 0.9-1.1 Activated Partial Thromboplast Time 43.6 21.0-31.0 SECONDS Partial Thromboplastin Ratio 1.7 Sodium Level 140 136-145 mmol/L Potassium Level 3.4 3.5-5.1 mmol/L Chloride Level 105 98-107 mmol/L Carbon Dioxide Level 24 21-32 mmol/L Anion Gap 11.0 3-11 mmol/L Blood Urea Nitrogen 18 7-18 mg/dl Creatinine 1.09 0.60-1.20 mg/dl Est Creatinine Clear Calc Drug Dose 41.7 ml/min Estimated GFR () 54.0 Estimated GFR (Non- 46.6 BUN/Creatinine Ratio 16.1 10-20 Random Glucose 136 70-99 mg/dl Calcium Level 8.5 8.5-10.1 mg/dl Total Bilirubin 0.3 0.2-1 mg/dl Direct Bilirubin 0.1 0-0.2 mg/dl Aspartate Amino Transf (AST/SGOT) 30 15-37 U/L Alanine Aminotransferase (ALT/SGPT) 20 12-78 U/L Alkaline Phosphatase 67 45-117 U/L Troponin I 0.028 0-0.045 ng/ml Total Protein 6.7 6.4-8.2 gm/dl Albumin 3.1 3.4-5.0 gm/dl Lipase 184 73-393 U/L Diagnostic Radiology CHEST ONE VIEW PORTABLE CLINICAL HISTORY: EVALUATE GI BLEED chest pain COMPARISON STUDY: 11/03/2016 FINDINGS: Lungs are clear. A permanent bipolar cardiac pacemaker. Diaphragms are smooth. Costophrenic angles sharp. IMPRESSION: No acute process. EKG Poor data quality, interpretation may be adversely affected Atrial-paced rhythm with prolonged AV conduction with occasional ventricular- paced complexes Left axis deviation Left ventricular hypertrophy with repolarization abnormality Abnormal ECG When compared with ECG of 03-NOV-2016 12:30, No significant change Confirmed by CINDY ENG ([id number]) on 04/20/2017 3:02:52 PM Impression Assessment and Plan Ms. Pascual is an 86 y/o female with PMHx of Paroxysmal Atrial Fibrillation, Sick Sinus Syndrome S/P Pacemaker, HTN, HLD, Hypothyroidism, and CKD Stage III who presents to the ED c/o hematochezia that started Monday. Acute Blood Loss Anemia 2/2 Lower GI Bleed: Hemorrhoidal vs Fissure vs Diverticular - Hemoglobin of 14.1 on 03/30 then 11.3 on 04/19 and now 8.4 in ED - Transfuse 1 unit PRBC and continue to monitor with Q6H H&H - Place NPO and cover with NSS + KCl 20 mEq at 50 mL/hr - Consult GI - follows with Dr. Dickson - appreciate recommendations Supratherapeutic INR: - Reversal with Vit K 10 mg x 1 dose - continue to monitor INR and hold Coumadin HTN: - Did not have her medications this AM - Norvasc 10 mg daily and hold Lasix 20 mg daily while gently hydrating Paroxysmal Atrial Fibrillation/Sick Sinus Syndrome S/P Pacer (October 2016): - Coreg 6.25 mg BID - Hold Coumadin due to GI bleed Hypothyroidism: - Synthroid 112 mcg daily HLD: - Pravastatin 20 mg HS CKD Stage III: STABLE DVT Prophylaxis: SCDs/TEDs; hold chemical means due to bleeding Code Status: FULL RESUSCITATION Resident Physician Supervision Note: I was present with the PA Nini Roman during the history and exam. I discussed the case with the PA and agree with the findings and plan as documented in the note. Any exceptions or clarifications are listed here: Pleasant 86 y/o F PAF, SSS-pacer, HTN, CKD III - presenting with Hematochezia and is notably anemic on initial labs. She denies related symptoms such as CP, SOB, lighthead and her vital signs have been stable AAO x 3 S1,2 R - slight murmur CTAB NT, ND No CCE No Deficits P: Bleed is likely lower - GI consulted - will be kept NPO - provided with vitamin K due to elevated INR of 5.2 - one unit transfused due to active bleeding DM - Q6H SS CKD III - renal function is at baseline Hypothyroid - cont Synthroid Above discussed with pt, resident, ER attending Documented By: Aryan Sosa Level of Care Telemetry Resuscitation Status FULL RESUSCITATION VTE Prophylaxis VTE Risk Assessment Done? Y/N: Yes Risk Level: Moderate Given or contraindicated: T.E.D. Stockings, SCD's
--- NOTE | 2017-04-20 15:39 | EMERGENCY ROOM VISIT NOTE ---
History Report prepared by Izabella: Dorene Rankin Under the Supervision of: Zelda KunzO. First contact with patient: 13:30 Chief Complaint: RECTAL BLEEDING Stated Complaint: BLOODY BOWELS-REFFERED BY History of Present Illness The patient is an 86 year old female who presents to the Emergency Room with complaints of persistent hematochezia that began two nights ago. The patient states that she is on Coumadin for Atrial Fibrillation. She states that she began experiencing bleeding with each bowel movement on Monday night. She states that she has not taken her Coumadin the past two nights. The patient states that she was seen at the Walk-in clinic yesterday and by her PCP's office this morning. The patient denies any previous abdominal surgeries. She states that she had 1 bout of hematochezia today, two bouts of hematochezia Monday and five bouts yesterday. The patient states that she is unsure how much blood she passes with each bowel movement, but states that it feels like it is a lot. She states that she feels she is just passing blood now. The patient denies any recent travel outside the country or drinking from streams. Source of History: patient Onset: two nights ago Position: other (global) Quality: other (hematochezia) Timing: other (persistent) Review of Systems See HPI for pertinent positives & negatives. A total of 10 systems reviewed and were otherwise negative. Past Medical & Surgical Medical Problems: (1) Arthritis (2) Atrial fibrillation (3) Hematochezia (4) High cholesterol (5) HTN (hypertension) (6) KNEE JOINT REPLACEMENT STATUS (7) Localized, primary osteoarthritis of the lower leg (8) Shingles (9) Sick sinus syndrome (10) Syncopal episodes (11) Thyroid disease Family History FHx: cancer FHx: heart disease Social History Smoking Status: Never Smoker Alcohol Use: none Drug Use: none Marital Status: Occupation Status: other Current/Historical Medications Scheduled Amlodipine (Norvasc), 10 MG PO DAILY Calcium Carbonate-Vitamin D (Calcium 600 + D), 1 TAB PO DAILY Carvedilol (Coreg), 1 TAB PO BID Furosemide (Lasix), 20 MG PO QAM Levothyroxine Sodium (Levothyroxine Sodium), 112 MCG PO DAILY Multivitamin (Multivitamin), 1 TAB PO DAILY Pravastatin Sod (Pravastatin Sodium), 20 MG PO HS Warfarin Sodium (Warfarin Sodium), 4 MG PO HS Allergies Coded Allergies: Solifenacin (Verified Allergy, Intermediate, "throat and tongue swelled up ", 04/20/17) Rofecoxib (Verified Allergy, Unknown, RASH, 04/20/17) Physical Exam Vital Signs Date Time Temp Pulse Resp B/P (MAP) Pulse Ox O2 Delivery O2 Flow Rate FiO2 04/20/17 15:01 61 18 185/85 97 04/20/17 14:56 63 19 98 04/20/17 14:51 154/62 04/20/17 14:41 64 20 97 04/20/17 14:26 60 18 97 04/20/17 14:11 59 14 97 04/20/17 14:06 61 19 97 04/20/17 14:01 56 24 96 04/20/17 13:58 65 04/20/17 13:56 142/60 04/20/17 13:47 99 Room Air 04/20/17 13:23 36.9 71 18 119/81 99 Room Air Physical Exam GENERAL: Sitting up on edge bed, alert, well appearing, well nourished, no distress, non-toxic EYE EXAM: normal conjunctiva. OROPHARYNX: no exudate, no erythema, lips, buccal mucosa, and tongue normal and mucous membranes are moist NECK: supple, no nuchal rigidity, no adenopathy, non-tender LUNGS: Clear to auscultation. Normal chest wall mechanics HEART: no murmurs, S1 normal and S2 normal ABDOMEN: abdomen soft, non-tender, normo-active bowel sounds, no masses, no rebound or guarding. BACK: Back is symmetrical on inspection and there is no deformity, no midline tenderness, no CVA tenderness. RECTAL: Gross blood on rectal exam, no hemorrhoids SKIN: no rashes and no bruising UPPER EXTREMITIES: upper extremities are grossly normal. LOWER EXTREMITIES: No pitting edema. NEURO EXAM: Normal sensorium, cranial nerves II-XII grossly intact, normal speech, no gross weakness of arms, no gross weakness of legs. Medical Decision & Procedures ER Provider Diagnostic Interpretation: Radiology results as stated below per my review and the radiologist's interpretation: CHEST ONE VIEW PORTABLE CLINICAL HISTORY: EVALUATE GI BLEED chest pain COMPARISON STUDY: 11/03/2016 FINDINGS: Lungs are clear. A permanent bipolar cardiac pacemaker. Diaphragms are smooth. Costophrenic angles sharp. IMPRESSION: No acute process. The above report was generated using voice recognition software. It may contain grammatical, syntax or spelling errors. Electronically signed by: Slava Regalado M.D. 04/20/2017 2:15 PM Dictated Date/Time: 04/20/2017 2:00 PM Laboratory Results 04/20/17 13:48 Red Blood Count 2.65, Mean Corpuscular Volume 92.1, Mean Corpuscular Hemoglobin 31.7, Mean Corpuscular Hemoglobin Concent 34.4, Mean Platelet Volume 9.9, Neutrophils (%) (Auto) 70.4, Lymphocytes (%) (Auto) 16.6, Monocytes (%) (Auto) 11.4, Eosinophils (%) (Auto) 0.3, Basophils (%) (Auto) 1.0, Neutrophils # (Auto ) 4.19, Lymphocytes # (Auto) 0.99, Monocytes # (Auto) 0.68, Eosinophils # (Auto ) 0.02, Basophils # (Auto) 0.06 04/20/17 13:48 Test 04/20/17 13:48 White Blood Count 5.96 K/uL (4.8-10.8) Red Blood Count 2.65 M/uL (4.2-5.4) Hemoglobin 8.4 g/dL (12.0-16.0) Hematocrit 24.4 % (37-47) Mean Corpuscular Volume 92.1 fL (80-100) Mean Corpuscular Hemoglobin 31.7 pg (25-34) Mean Corpuscular Hemoglobin Concent 34.4 g/dl (32-36) Platelet Count 214 K/uL (130-400) Mean Platelet Volume 9.9 fL (7.4-10.4) Neutrophils (%) (Auto) 70.4 % Lymphocytes (%) (Auto) 16.6 % Monocytes (%) (Auto) 11.4 % Eosinophils (%) (Auto) 0.3 % Basophils (%) (Auto) 1.0 % Neutrophils # (Auto) 4.19 K/uL (1.4-6.5) Lymphocytes # (Auto) 0.99 K/uL (1.2-3.4) Monocytes # (Auto) 0.68 K/uL (0.11-0.59) Eosinophils # (Auto) 0.02 K/uL (0-0.5) Basophils # (Auto) 0.06 K/uL (0-0.2) RDW Standard Deviation 55.4 fL (36.4-46.3) RDW Coefficient of Variation 16.4 % (11.5-14.5) Immature Granulocyte % (Auto) 0.3 % Immature Granulocyte # (Auto) 0.02 K/uL (0.00-0.02) Prothrombin Time 59.6 SECONDS (9.0-12.0) Prothromb Time International Ratio 5.2 (0.9-1.1) Activated Partial Thromboplast Time 43.6 SECONDS (21.0-31.0) Partial Thromboplastin Ratio 1.7 Anion Gap 11.0 mmol/L (3-11) Est Creatinine Clear Calc Drug Dose 41.7 ml/min Estimated GFR () 54.0 Estimated GFR (Non- 46.6 BUN/Creatinine Ratio 16.1 (10-20) Calcium Level 8.5 mg/dl (8.5-10.1) Total Bilirubin 0.3 mg/dl (0.2-1) Direct Bilirubin 0.1 mg/dl (0-0.2) Aspartate Amino Transf (AST/SGOT) 30 U/L (15-37) Alanine Aminotransferase (ALT/SGPT) 20 U/L (12-78) Alkaline Phosphatase 67 U/L (45-117) Troponin I 0.028 ng/ml (0-0.045) Total Protein 6.7 gm/dl (6.4-8.2) Albumin 3.1 gm/dl (3.4-5.0) Lipase 184 U/L (73-393) Laboratory results per my review. Medications Administered Medications (Trade) Dose Ordered Sig/Marcela Route Start Time Stop Time Status Last Admin Dose Admin Sodium Chloride 1,000 ml @ 999 mls/hr Q1H1M STAT IV 04/20/17 13:31 04/20/17 14:31 DC 04/20/17 13:58 999 MLS/HR Phytonadione 10 mg/Sodium Chloride 51 ml @ 102 mls/hr ONE ONCE IV 04/20/17 14:30 04/20/17 14:59 DC 04/20/17 14:59 102 MLS/HR ECG Indication: other (GI bleed) Rate (beats per minute): 64 Rhythm: other (paced rhythm) Findings: PVC, left axis deviation, other (flipped T wave laterally) ED Course ED COURSE: Vital signs were reviewed and showed normal vitals The patients medical record was reviewed The above diagnostic studies were performed and reviewed. ED treatments and interventions as stated above. 1330: The patient was evaluated in room A11B. A complete history and physical examination was performed. 1331: Ordered Sodium Chloride 1000 ml @ 999 mls/hr IV. 1412: Upon reevaluation, the patient is resting comfortably.I discussed my findings with the patient and she understands and agrees with the treatment plan. Based on the patients age, coexisting illnesses, exam and lab findings the decision to treat as an inpatient was made. The patient remained stable while under my care. The patient will be evaluated for further management. 1430: Ordered Phytonadione 10 mg/Sodium Chloride 51 ml @ 102 mls/hr Protocol IV. 1443: I discussed the patients case with Dr. Pepe, Anticoagulation clinic. She said that the patient should receive 10 mg of IV K. 1446: Dr. Dickson, Gastroenterology is aware of the patient. 1447: I discussed the patient's case with [facility]. They are going to evaluate the patient for further treatment. Medical Decision Differential diagnosis includes etiologies such as diverticulosis, AVM, coagulopathy, colitis, inflammatory bowel disease, malignancy, Jayna-Alba tear, esophagitis, peptic ulcer disease, variceal bleed, gastritis, epistaxis, fissure, hemorrhoids, as well as others were entertained. Patient is an 86-year-old female who presents to ER. Her red blood per rectum for the past 2-3 days. She is taking Coumadin for A. fib and has not taking this medication for the past 2 days. She notes that she is feeling slightly weak. She denies any belly pain. No nausea vomiting. No chest pain or shortness of breath. Rectal shows grossly positive blood. No active bleeding while in the ER. Vitals are stable. Patient was given 1 L normal saline followed by PRBCs which were transfused in the ER as her hemoglobin dropped from 12 to 8. INR was reversed as it was 5. She was given IV vitamin K 10 mg. I did discuss these findings with Dr. Santos. I discussed the findings as well with GI with the active bleeding. Updated and discussed with internal medicine for admission. Patient family were updated bedside. Blood consent was obtained. Patient was admitted to internal medicine with symptomatically anemia and a GI bleed with a supratherapeutic INR which is being reversed while receiving PRBCs. Medication Reconcilliation Current Medication List: was personally reviewed by me Blood Pressure Screening Patient's blood pressure: Normal blood pressure Blood pressure disposition: Did not require urgent referral Consults Time Called: 1440 Consulting Physician: Dr. Pepe, Anticoagulation Clinic Returned Call: 1448 I discussed the patients case with Dr. Pepe, Anticoagulation clinic. She said that the patient should receive 10 mg of IV K. Additional Consults: Time Called: 1440 Consulted Physician: [facility] Returned Call: [phone] Additional Comments: I discussed the patient's case with [facility]. They are going to evaluate the patient for further treatment. Impression Primary Impression: GI bleed Additional Impressions: Elevated INR Symptomatic anemia Critical Care I have personally spent 35 minutes of critical care time in the direct management of this patient. This includes bedside care, interpretation of diagnostic studies, and testing, discussion with consultants, patient, and family members, and other required patient management activities. This 35 minutes is in excess of all separately billable procedures. Scribe Attestation The scribe's documentation has been prepared under my direction and personally reviewed by me in its entirety. I confirm that the note above accurately reflects all work, treatment, procedures, and medical decision making performed by me. Departure Information Dispostion Being Evaluated By Hospitalist Referrals Rafael Glez M.D. (PCP) Problem Qualifiers Primary Impression: GI bleed GI bleed type/associated pathology: unspecified gastrointestinal hemorrhage type Qualified Codes: K92.2 - Gastrointestinal hemorrhage, unspecified
[2017-04-20] MEDS ORDERED: HydrALAZINE HCL 20 MG/ML VIAL IV. PRN (15:45)
--- NOTE | 2017-04-20 16:51 | Gastrointestinal Consultation ---
Gastrointestinal Consultation Date of Consultation: Apr 20, 2017 Attending Physician: Nini Roman PA-C Consulting Physician: Dr. Jiang/MARIANA López Reason for Consultation: GIB History of Present Illness Patient is a 86 year old female with a history of paroxysmal atrial fibrillation and sick sinus syndrome s/p pacemaker placement reportedly in October of this year on chronic anticoagulation therapy with Coumadin. She states she had been doing well until approximately one month ago at which time she developed a sudden onset of diarrhea which she described as loose to watery stools. She was seen by her PCP as an outpatient for symptoms and did have negative C diff, cx and O&P tests. Despite this, she remained symptomatic and was prescribed a course of Cipro and Flagyl for her symptoms which she states did not improve her bowel function. On Monday, she began passing bright red blood mixed with her diarrhea. She also reports bright red blood filling the toilet bowl. Concerned, she did present to her PCP's office. She was noted to have a drop in her H&H and elevated INR. She was instructed to hold her Coumadin (which she states she has done for the past two days) but bleeding has persisted. Per advisement, she did present to the ER for further evaluation. On arrival, she was noted to have a supratherapeutic INR of 5.2. Her Hemoglobin has significantly dropped from 14.1 on 03/30 to 11.3 yesterday. On arrival, her H &H has dropped further to 8.4 and 24.4 respectively. The patient denies any chest pain, palpitations, shortness of breath, abdominal pain, nausea or hematemesis. She states she did have "dry heaves" but no black or tarry stools or other GI complaints. She is currently receiving a blood transfusion and her INR is being reversed. Past medical history is significant for small to medium hiatus hernia and food impactions related to esophageal stenosis with prior therapeutic dilations. Her last EGD was performed by Dr. Duffy in 2013. Last colonoscopy was performed by Dr. Dickson in 2009 and was significant only for diverticulosis and internal hemorrhoids. Patient reports she now also does have external hemorrhoids but these have never caused pain or bleeding. She denies any current painful bms. Past Medical/Surgical History Medical Problems: (1) Elevated INR Status: Acute (2) GI bleed Status: Acute (3) Symptomatic anemia Status: Acute Past Medical History: 1. Atrial fibrillation 2. Sick sinus syndrome 3. Hypothyroidism 4. Arthritis 5. Constipation 6. Gout 7. Hypertension 8. Hypercholesterolemia 9. Restless leg syndrome 10. Uterine prolapse 11. C difficile colitis 12. UTI 13. Sepsis Past Surgical History: 1. Breast surgery 2. Pacemaker placement 3. Tubal ligation 4. Left TKA Family History FHx: cancer FHx: heart disease Negative for GI malignancy or IBD Social History Smoking Status: Never Smoker Alcohol Use: none Drug Use: none Marital Status: Occupation Status: other Allergies Coded Allergies: Solifenacin (Verified Allergy, Intermediate, "throat and tongue swelled up ", 04/20/17) Rofecoxib (Verified Allergy, Unknown, RASH, 04/20/17) Current Medications Home Meds and Scripts Medications Dose Route/Sig Max Daily Dose Days Date Category Dose Instructions Levothyroxine Sodium 112 Mcg Tab 112 Mcg PO DAILY 04/20/17 Reported Calcium 600 + D (Calcium Carbonate-Vitamin D) 1 Tab Tab 1 Tab PO DAILY 04/20/17 Reported Coreg (Carvedilol) 6.25 Mg Tab 1 Tab PO BID 90 11/04/16 Rx Norvasc (Amlodipine Besylate) 10 Mg Tab 10 Mg PO DAILY 11/04/16 Rx Lasix (Furosemide) 40 Mg Tab 20 Mg PO QAM 11/03/16 Reported Pravastatin Sodium (Pravastatin Sod) 20 Mg Tab 20 Mg PO HS 09/03/14 Reported Warfarin Sodium 4 Mg Tab 4 Mg PO HS 12/02/13 Reported TAKE 4 MG EVERY DAY OR OTHERWISE DIRECTED TO TAKE BY ANTICOAGULATION CLINIC/MD. Multivitamin (Multivitamins) Tab 1 Tab PO DAILY 09/18/12 Reported Review of Systems Constitutional: No fever, No chills Eyes: No problem reported ENT: No trouble swallowing, No pain on swallowing Respiratory: + see HPI Cardiac: + see HPI Abdomen: + see HPI Musculoskeletal: No swelling Female : No problem reported Neuro: No problem reported Psych: No problem reported Skin: No problem reported Physical Exam Date Time Temp Pulse Resp B/P (MAP) Pulse Ox O2 Delivery O2 Flow Rate FiO2 04/20/17 15:59 36.5 63 18 143/85 95 04/20/17 15:58 36.5 63 18 143/85 95 04/20/17 15:47 60 20 140/71 96 04/20/17 15:38 36.6 61 16 139/76 98 04/20/17 15:38 60 20 139/76 96 04/20/17 15:31 63 18 141/81 98 04/20/17 15:21 64 16 98 04/20/17 15:17 156/109 04/20/17 15:06 60 20 98 04/20/17 15:01 61 18 185/85 97 04/20/17 14:56 63 19 98 04/20/17 14:51 154/62 04/20/17 14:41 64 20 97 04/20/17 14:26 60 18 97 04/20/17 14:11 59 14 97 04/20/17 14:06 61 19 97 04/20/17 14:01 56 24 96 04/20/17 13:58 65 04/20/17 13:56 142/60 04/20/17 13:47 99 Room Air 04/20/17 13:23 36.9 71 18 119/81 99 Room Air General Appearance: no apparent distress Eyes: EOMI ENT: hearing grossly normal Neck: supple Respiratory/Chest: lungs clear, normal breath sounds Cardiovascular: regular rate, rhythm Abdomen: normal bowel sounds, non tender, soft Extremities: no pedal edema Neurologic/Psych: alert, normal mood/affect, oriented x 3 Skin: warm/dry Laboratory Results Last 24 Hours Test 04/20/17 13:48 White Blood Count 5.96 K/uL Red Blood Count 2.65 M/uL Hemoglobin 8.4 g/dL Hematocrit 24.4 % Mean Corpuscular Volume 92.1 fL Mean Corpuscular Hemoglobin 31.7 pg Mean Corpuscular Hemoglobin Concent 34.4 g/dl Platelet Count 214 K/uL Mean Platelet Volume 9.9 fL Neutrophils (%) (Auto) 70.4 % Lymphocytes (%) (Auto) 16.6 % Monocytes (%) (Auto) 11.4 % Eosinophils (%) (Auto) 0.3 % Basophils (%) (Auto) 1.0 % Neutrophils # (Auto) 4.19 K/uL Lymphocytes # (Auto) 0.99 K/uL Monocytes # (Auto) 0.68 K/uL Eosinophils # (Auto) 0.02 K/uL Basophils # (Auto) 0.06 K/uL RDW Standard Deviation 55.4 fL RDW Coefficient of Variation 16.4 % Immature Granulocyte % (Auto) 0.3 % Immature Granulocyte # (Auto) 0.02 K/uL Prothrombin Time 59.6 SECONDS Prothromb Time International Ratio 5.2 Activated Partial Thromboplast Time 43.6 SECONDS Partial Thromboplastin Ratio 1.7 Sodium Level 140 mmol/L Potassium Level 3.4 mmol/L Chloride Level 105 mmol/L Carbon Dioxide Level 24 mmol/L Anion Gap 11.0 mmol/L Blood Urea Nitrogen 18 mg/dl Creatinine 1.09 mg/dl Est Creatinine Clear Calc Drug Dose 41.7 ml/min Estimated GFR () 54.0 Estimated GFR (Non- 46.6 BUN/Creatinine Ratio 16.1 Random Glucose 136 mg/dl Calcium Level 8.5 mg/dl Total Bilirubin 0.3 mg/dl Direct Bilirubin 0.1 mg/dl Aspartate Amino Transf (AST/SGOT) 30 U/L Alanine Aminotransferase (ALT/SGPT) 20 U/L Alkaline Phosphatase 67 U/L Troponin I 0.028 ng/ml Total Protein 6.7 gm/dl Albumin 3.1 gm/dl Lipase 184 U/L Impression Patient is a 86 year old female with a history of C Difficile colitis admitted with acute blood loss anemia in the setting of supratherapeutic INR, diarrhea and bright red rectal bleeding. Plan 1. Check stool for C Difficile toxin B as she has been recently treated with oral antibiotics and does have a history of this infection. 2. If negative, proceed with bowel prep this evening with GoLytely solution as ordered. 3. Discussed with MELODY Muller for clears tonight. NPO except meds after midnight. 4. Recommend supportive measures with blood transfusion and reversal of INR as ordered. 5. If no infection, plan for EGD and colonoscopy for further evaluation of symptoms. 6. Additional recommendations pending results of testing. Thank you for allowing us to participate in the care of this pleasant patient. If you have any questions or concerns, please do not hesitate to contact us. Agree with MARIANA López as above Abd: Soft, NT, ND, +BS Agree with EGD and Colonoscopy in AM. If C-Diff would return positive, I would not recommend invasive testing at present, and would recommend treatment of acute infectious colitis with further workup deferred
[2017-04-20] MEDS: NSS + 20MEQ KCL 1000ML 1,000 ML IV SCH (17:25)
[2017-04-20] MEDS ORDERED: LAVAGE SOLUTION 4000ML PO SCH (18:00)
[2017-04-20 18:37] LABS: URINE APPEARANCE CLOUDY (CLEAR); URINE COLOR DK YELLOW; URINE EPITHELIAL CELL AUTO >30 /lpf (0-5); URINE NITRITE POS (NEG); UROBILINOGEN NEG (NEG)
[2017-04-20 18:39] LABS: MANUAL MICROSCOPIC REQUIRED? NO; REVIEW REQ? NO
[2017-04-20 18:40] LABS: URINE BILIRUBIN NEG (NEG)
[2017-04-20] MEDS: CARVEDILOL 6.25 MG TAB PO SCH (20:10)
[2017-04-20 20:14] LABS: HEMATOCRIT 25.3 % (37-47)
[2017-04-20] MEDS: PRAVASTATIN SOD 20 MG TAB PO SCH (20:37)
[2017-04-20] MEDS: PANTOprazole INJ 40 MG in SYRINGE 0 ML IV SCH (20:37)
[2017-04-20 21:06] LABS: INR 1.7 (0.9-1.1); PROTHROMBIN TIME (PATIENT) 19.1 SECONDS (9.0-12.0)
[2017-04-21] VITALS (9 sets, daily range): BP systolic 103–163; BP diastolic 56–68; PULSE 47–68; TEMP 36.3–37.1; O2SAT 94–98
[2017-04-21 02:19] LABS: HEMATOCRIT 27.1 % (37-47)
[2017-04-21] MEDS: LEVOTHYROXINE 112 MCG TAB PO SCH (05:44)
[2017-04-21 08:27] LABS: HEMATOCRIT 25.9 % (37-47); MEAN CELL VOLUME 88.4 fL (80-100); MEAN PLATELET VOLUME 9.4 fL (7.4-10.4); PLATELET COUNT 146 K/uL (130-400); RED BLOOD COUNT 2.93 M/uL (4.2-5.4); WHITE BLOOD COUNT 4.44 K/uL (4.8-10.8)
[2017-04-21] MEDS: CEFAZOLIN IV 1,000 MG in SYRINGE 0 ML IV SCH ×2 (08:48→20:24)
[2017-04-21] MEDS: CARVEDILOL 6.25 MG TAB PO SCH ×2 (08:48→20:23)
[2017-04-21] MEDS: PANTOprazole INJ 40 MG in SYRINGE 0 ML IV SCH ×2 (08:48→20:22)
[2017-04-21] MEDS: AMLODIPINE BESYLATE 5 MG TAB PO SCH (08:49)
[2017-04-21 08:54] LABS: BUN/CREATININE RATIO 12.9 (10-20); CALCIUM 7.9 mg/dl (8.5-10.1); CREATININE 0.85 mg/dl (0.60-1.20); POTASSIUM 3.1 mmol/L (3.5-5.1)
[2017-04-21 09:02] LABS: INR 1.2 (0.9-1.1); PROTHROMBIN TIME (PATIENT) 13.3 SECONDS (9.0-12.0)
--- NOTE | 2017-04-21 09:53 | Hospitalist Progress Note ---
Hospitalist Progress Note Date of Service Apr 21, 2017. (Katharine Allison .MARIANA) Subjective Pt evaluation today including: conversation w/ patient, physical exam, chart review, lab review, review of studies, review of inpatient medication list Voiding: no voiding problems Ms. Pascual reports feeling much better today than last night. She did receive one unit of blood over night. She continues to have bright red bleeding with bowel movements ROS Constitutional: no chills, aches, sweats or fever Respiratory: no sob,cough, sputum, or wheezing Cardiac: no chest pain, palpitations, edema, orthopnea or lightheadedness GI: no abdominal pain, nausea, vomiting, diarrhea or constipation : no dysuria or hesitancy Extremities: no joint pain or weakness Skin: no rash All Other Systems: Reviewed and Negative (Katharine Allison CRNP) Medications Medications Administered Medications (Trade) Dose Ordered Sig/Marcela Route Start Time Stop Time Status Last Admin Dose Admin Sodium Chloride 1,000 ml @ 999 mls/hr Q1H1M STAT IV 04/20/17 13:31 04/20/17 14:31 DC 04/20/17 13:58 999 MLS/HR Phytonadione 10 mg/Sodium Chloride 51 ml @ 102 mls/hr ONE ONCE IV 04/20/17 14:30 04/20/17 14:59 DC 04/20/17 14:59 102 MLS/HR Amlodipine Besylate (Norvasc Tab) 10 mg DAILY PO 04/21/17 09:00 05/21/17 08:59 04/21/17 08:49 10 MG Carvedilol (Coreg Tab) 6.25 mg BID PO 04/20/17 21:00 05/20/17 20:59 04/21/17 08:48 6.25 MG Levothyroxine Sodium (Synthroid Tab) 112 mcg DAILYBB PO 04/21/17 06:00 05/21/17 06:59 04/21/17 05:44 112 MCG Pravastatin Sodium (Pravachol Tab) 20 mg HS PO 04/20/17 21:00 05/20/17 20:59 04/20/17 20:37 20 MG Potassium Chloride/Sodium Chloride 1,000 ml @ 50 mls/hr Q20H IV 04/20/17 16:45 05/20/17 16:44 04/20/17 17:25 50 MLS/HR Pantoprazole Sodium 40 mg/ Syringe 10 ml @ 5 mls/min DAILY@ IV 04/20/17 21:00 05/20/17 20:59 04/21/17 08:48 5 MLS/MIN Polyethylene Glycol/ Electrolytes (Golytely Soln) 16 dose UD PO 04/20/17 18:00 04/21/17 08:00 DC 04/20/17 19:34 16 DOSE Cefazolin Sodium 1000 mg/Syringe 5 ml @ 100 mls/hr Q12@08,1999 IV 04/21/17 08:30 04/26/17 08:29 04/21/17 08:48 100 MLS/HR (Katharine Allison, MARIANA) Objective Vital Signs Date Time Temp Pulse Resp B/P (MAP) Pulse Ox O2 Delivery O2 Flow Rate FiO2 04/21/17 08:02 36.3 62 20 163/56 (91) 98 Room Air 04/21/17 06:16 37.1 61 18 152/68 95 Room Air 04/21/17 04:00 Room Air 04/21/17 03:32 37.1 61 18 152/68 (96) 95 Room Air 04/20/17 23:59 Room Air 04/20/17 23:35 37.0 62 18 136/59 (84) 95 Room Air 04/20/17 22:50 37.1 60 18 148/71 94 04/20/17 21:50 36.9 67 18 148/74 97 04/20/17 21:20 36.8 70 18 131/63 95 04/20/17 20:59 36.7 60 18 133/72 95 04/20/17 20:00 Room Air 04/20/17 16:45 36.7 61 16 133/59 04/20/17 16:33 36.7 68 18 150/66 97 Room Air 04/20/17 16:29 36.7 68 18 150/66 (94) 97 Room Air 04/20/17 16:15 36.7 68 16 150/66 97 04/20/17 15:59 36.5 63 18 143/85 95 04/20/17 15:58 36.5 63 18 143/85 95 04/20/17 15:47 60 20 140/71 96 04/20/17 15:38 36.6 61 16 139/76 98 04/20/17 15:38 60 20 139/76 96 04/20/17 15:31 63 18 141/81 98 04/20/17 15:21 64 16 98 04/20/17 15:17 156/109 04/20/17 15:06 60 20 98 04/20/17 15:01 61 18 185/85 97 04/20/17 14:56 63 19 98 04/20/17 14:51 154/62 04/20/17 14:41 64 20 97 04/20/17 14:26 60 18 97 04/20/17 14:11 59 14 97 04/20/17 14:06 61 19 97 04/20/17 14:01 56 24 96 04/20/17 13:58 65 04/20/17 13:56 142/60 04/20/17 13:47 99 Room Air 04/20/17 13:23 36.9 71 18 119/81 99 Room Air (Katharine Allison CRNP) Physical Exam Notes: General: no distress Eyes: normal inspection, PERLL Respiratory: chest non tender, clear to auscultation, normal breath sounds, no respiratory distress, no accessory muscle use Cardiac: regular rate and rhythm, no rub or gallop, no murmur, no edema, no jvd GI/: active bowel sounds, no abd pain or tenderness, soft, non distended Extremities: normal range of motion, normal strength, non tender Neuro/Psych: alert and oriented x 3, normal mood and affect Skin: normal color, dry (Katharine Allison CRNP) Laboratory Results Last 24 Hours Test 04/20/17 13:48 04/20/17 19:57 04/20/17 20:19 04/21/17 02:03 White Blood Count 5.96 K/uL Red Blood Count 2.65 M/uL Hemoglobin 8.4 g/dL 8.5 g/dL 9.2 g/dL Hematocrit 24.4 % 25.3 % 27.1 % Mean Corpuscular Volume 92.1 fL Mean Corpuscular Hemoglobin 31.7 pg Mean Corpuscular Hemoglobin Concent 34.4 g/dl Platelet Count 214 K/uL Mean Platelet Volume 9.9 fL Neutrophils (%) (Auto) 70.4 % Lymphocytes (%) (Auto) 16.6 % Monocytes (%) (Auto) 11.4 % Eosinophils (%) (Auto) 0.3 % Basophils (%) (Auto) 1.0 % Neutrophils # (Auto) 4.19 K/uL Lymphocytes # (Auto) 0.99 K/uL Monocytes # (Auto) 0.68 K/uL Eosinophils # (Auto) 0.02 K/uL Basophils # (Auto) 0.06 K/uL RDW Standard Deviation 55.4 fL RDW Coefficient of Variation 16.4 % Immature Granulocyte % (Auto) 0.3 % Immature Granulocyte # (Auto) 0.02 K/uL Prothrombin Time 59.6 SECONDS 19.1 SECONDS Prothromb Time International Ratio 5.2 1.7 Activated Partial Thromboplast Time 43.6 SECONDS Partial Thromboplastin Ratio 1.7 Sodium Level 140 mmol/L Potassium Level 3.4 mmol/L Chloride Level 105 mmol/L Carbon Dioxide Level 24 mmol/L Anion Gap 11.0 mmol/L Blood Urea Nitrogen 18 mg/dl Creatinine 1.09 mg/dl Est Creatinine Clear Calc Drug Dose 41.7 ml/min Estimated GFR () 54.0 Estimated GFR (Non- 46.6 BUN/Creatinine Ratio 16.1 Random Glucose 136 mg/dl Calcium Level 8.5 mg/dl Total Bilirubin 0.3 mg/dl Direct Bilirubin 0.1 mg/dl Aspartate Amino Transf (AST/SGOT) 30 U/L Alanine Aminotransferase (ALT/SGPT) 20 U/L Alkaline Phosphatase 67 U/L Troponin I 0.028 ng/ml Total Protein 6.7 gm/dl Albumin 3.1 gm/dl Lipase 184 U/L Test 04/21/17 08:14 04/21/17 09:19 White Blood Count 4.44 K/uL Red Blood Count 2.93 M/uL Hemoglobin 8.8 g/dL Hematocrit 25.9 % Mean Corpuscular Volume 88.4 fL Mean Corpuscular Hemoglobin 30.0 pg Mean Corpuscular Hemoglobin Concent 34.0 g/dl Platelet Count 146 K/uL Mean Platelet Volume 9.4 fL RDW Standard Deviation 54.5 fL RDW Coefficient of Variation 17.0 % Prothrombin Time 13.3 SECONDS Prothromb Time International Ratio 1.2 Sodium Level 144 mmol/L Potassium Level 3.1 mmol/L Chloride Level 110 mmol/L Carbon Dioxide Level 26 mmol/L Anion Gap 8.0 mmol/L Blood Urea Nitrogen 11 mg/dl Creatinine 0.85 mg/dl Est Creatinine Clear Calc Drug Dose 53.8 ml/min Estimated GFR () 72.9 Estimated GFR (Non- 62.9 BUN/Creatinine Ratio 12.9 Random Glucose 96 mg/dl Calcium Level 7.9 mg/dl (Katharine Allison CRNP) Assessment and Plan Ms. Pascual is an 86 y/o female with PMHx of Paroxysmal Atrial Fibrillation, Sick Sinus Syndrome S/P Pacemaker, HTN, HLD, Hypothyroidism, and CKD Stage III who presents to the ED c/o hematochezia that started Monday. GI Bleed with blood loss anemia - Hgb 8.8 this am, up from 8.5 after transfusion of 1 unit prbcs - GI consulted - plan to EGD and colonoscopy today - Hgb & Hct this afternoon - C diff negative, outpatient cultures were negative Elevated INR on admission - INR 5.2 on admission - reversed with vitamin K, last dose of INR was on Monday - INR may have increased due to concomitant use of cipro SSS S/P pacer/ PAF - long interval between atrial pacing and qrs as well as drops in HR per nursing - pacer interrogation showed normal functioning pacer and that patient is in SR after having been in A.fib for quite a while - hold coumadin until after scope Hypokalemia - replaced Hypomagnesemia - repleated HTN - continue amlodipine, carvedilol - hydralazine prn - lasix on hold for now while not taking po HLD - continue statin CKD III - at baseline kidney function - prp am - avoid nephrotoxic medications when possible Hypothyroid - continue levothyroxine DVT proph - restart coumadin after scope Full code (Katharine Allison CRNP) Attending Attestation: Pt seen/examined, chart reviewed, care plan d/w MARIANA Allison. I agree w/ the munoz components of her documentation. I saw the patient post- EGD/colonoscopy - resting well; no further episodes of bright red blood (last BM was 1030 this AM - no gross blood). No abd pain. No nausea/emesis. No dyspnea. VSS no fever gen - nad skin - pallor heart - RRR lungs - CTA b/l abd - soft, NT, ND, BS+, no HSM ext - no edema Hb 8.5 A/P: 1. acute blood loss anemia 2nd to lower GI bleeding 2. lower GI bleeding - exact etiology uncertain - colonoscopy w/ diverticulosis but no overt bleeding or signs of recent bleeding; small bowel AVM? other? 3. pacemaker status - s/p interrogation today - normal functioning pacer 4. underlying a fib on chronic coumadin 5. supratherapeutic INR - resolved 6. possible UTI - ancef IV for now while awaiting cx H/H tonight then again in AM diet per GI Tx if necessary watch for recurrent bleeding if rebleeding - tagged RBC scan? family updated Tony GRIFFITH MD (Mata Griffith MD)
[2017-04-21] MEDS: POTASSIUM CHLR 10 MEQ / WTR 10 MEQ in PREMIXED WATER 100 ML IV SCH ×2 (10:07→11:43)
[2017-04-21 11:33] LABS: COMPLETE YES; LYMPH ABS # 0.96 K/uL (1.2-3.4); LYMPHOCYTE % 21.6 %; MYELOCYTE % 2.6 %; NEUTROPHILS % 65.4 %
[2017-04-21] MEDS: MAGNESIUM SULFATE 1GM / D5W 1 GM in PREMIXED IN D5W 100 ML IV SCH ×2 (11:45→13:10)
[2017-04-21] MEDS: NSS + 20MEQ KCL 1000ML 1,000 ML IV SCH (11:46)
[2017-04-21] MEDS ORDERED: LIDOCAINE HCL 2% 2 ML VIAL (20MG/ML) ONE (14:08)
[2017-04-21] MEDS ORDERED: ONDANSETRON INJ 2 MG/ML 2 ML VIAL ONE (14:08)
[2017-04-21] MEDS ORDERED: PROPOFOL IV EMULSION 10 MG/ML 20 ML VIAL IV ONE (14:08)
[2017-04-21] MEDS ORDERED: MIDAZOLAM HCL 1 MG/ML 2ML VIAL ONE (14:08)
--- NOTE | 2017-04-21 14:41 | GI REPORT ---
Procedure Date: 04/21/2017 2:12 PM Procedure: Colonoscopy Indications: Hematochezia, Iron deficiency anemia Medicines: Monitored Anesthesia Care Complications: No immediate complications. Estimated Blood Loss: Estimated blood loss: none. Procedure: Pre-Anesthesia Assessment: - Prior to the procedure, a History and Physical was performed, and patient medications and allergies were reviewed. The patient's tolerance of previous anesthesia was also reviewed. The risks and benefits of the procedure and the sedation options and risks were discussed with the patient. All questions were answered, and informed consent was obtained. Prior Anticoagulants: The patient has taken Coumadin (warfarin), last dose was 4 days prior to procedure. ASA Grade Assessment: III - A patient with severe systemic disease. After reviewing the risks and benefits, the patient was deemed in satisfactory condition to undergo the procedure. After I obtained informed consent, the scope was passed under direct vision. Throughout the procedure, the patient's blood pressure, pulse, and oxygen saturations were monitored continuously. The scope was introduced through the anus and advanced to the terminal ileum. The colonoscopy was performed without difficulty. The patient tolerated the procedure well. The quality of the bowel preparation was good. The terminal ileum, ileocecal valve, appendiceal orifice, and rectum were photographed. Findings: Multiple small-mouthed diverticula were found in the sigmoid colon. Non-bleeding internal hemorrhoids were found during retroflexion. The hemorrhoids were small. Impression: - Diverticulosis in the sigmoid colon. - Non-bleeding internal hemorrhoids. - No specimens collected. Recommendation: - Return patient to hospital [facility] for ongoing care. - Advance diet as tolerated. - Continue present medications. Jalil Dickson DO 04/21/2017 2:40:59 PM This report has been signed electronically. Note Initiated On: 04/21/2017 2:12 PM I attest to the content of the Intraoperative Record and orders documented therein, exceptions below
--- NOTE | 2017-04-21 14:43 | GI REPORT ---
Procedure Date: 04/21/2017 2:13 PM Procedure: Upper GI endoscopy Indications: Acute post hemorrhagic anemia, Hematochezia Medicines: Monitored Anesthesia Care Complications: No immediate complications. Estimated Blood Loss: Estimated blood loss: none. Procedure: Pre-Anesthesia Assessment: - Prior to the procedure, a History and Physical was performed, and patient medications and allergies were reviewed. The patient's tolerance of previous anesthesia was also reviewed. The risks and benefits of the procedure and the sedation options and risks were discussed with the patient. All questions were answered, and informed consent was obtained. Prior Anticoagulants: The patient has taken Coumadin (warfarin), last dose was 4 days prior to procedure. ASA Grade Assessment: III - A patient with severe systemic disease. After reviewing the risks and benefits, the patient was deemed in satisfactory condition to undergo the procedure. After obtaining informed consent, the endoscope was passed under direct vision. Throughout the procedure, the patient's blood pressure, pulse, and oxygen saturations were monitored continuously. The scope was introduced through the mouth, and advanced to the second part of duodenum. The upper GI endoscopy was accomplished without difficulty. The patient tolerated the procedure well. Findings: A non-obstructing Schatzki ring (acquired) was found at the gastroesophageal junction. A small hiatus hernia was present. The examined duodenum was normal. Impression: - Non-obstructing Schatzki ring. - Small hiatus hernia. - Normal examined duodenum. - No specimens collected. Recommendation: - Return patient to hospital [facility] for ongoing care. - Advance diet as tolerated. - Continue present medications. Jalil Dickson DO 04/21/2017 2:43:19 PM This report has been signed electronically. Note Initiated On: 04/21/2017 2:13 PM I attest to the content of the Intraoperative Record and orders documented therein, exceptions below
--- NOTE | 2017-04-21 15:36 | Anesthesiology Progress Note ---
Anesthesia Post Op Note Date & Time Apr 21, 2017 at 15:36 Vital Signs Pain Intensity: 0.0 Vital Signs Past 12 Hours Date Time Temp Pulse Resp B/P (MAP) Pulse Ox O2 Delivery O2 Flow Rate FiO2 04/21/17 15:13 61 16 103/46 (65) 96 Room Air 04/21/17 15:00 37.1 58 16 102/52 (69) 95 Room Air 04/21/17 14:55 77 16 94/45 (61) 97 Room Air 04/21/17 14:40 77 16 109/63 (78) 97 Room Air 04/21/17 13:00 37.1 62 20 111/61 (78) 96 Room Air 04/21/17 12:00 Room Air 04/21/17 11:44 37.1 66 20 119/59 (79) 94 Room Air 04/21/17 10:30 04/21/17 08:02 36.3 62 20 163/56 (91) 98 Room Air 04/21/17 08:00 Room Air 04/21/17 06:16 37.1 61 18 152/68 95 Room Air 04/21/17 04:00 Room Air Notes Mental Status: alert / awake / arousable, participated in evaluation Pt Amnestic to Procedure: Yes Nausea / Vomiting: adequately controlled Pain: adequately controlled Airway Patency, RR, SpO2: stable & adequate BP & HR: stable & adequate Hydration State: stable & adequate Anesthetic Complications: no major complications apparent
[2017-04-21 16:08] LABS: HEMATOCRIT 25.5 % (37-47)
[2017-04-21] MEDS: PRAVASTATIN SOD 20 MG TAB PO SCH (20:23)
[2017-04-22] VITALS (13 sets, daily range): BP systolic 96–147; BP diastolic 55–73; PULSE 59–67; TEMP 36.4–37.1; O2SAT 92–98
[2017-04-22 00:11] LABS: HEMATOCRIT 22.7 % (37-47)
[2017-04-22] MEDS: LEVOTHYROXINE 112 MCG TAB PO SCH (05:41)
[2017-04-22 07:35] LABS: HEMATOCRIT 23.1 % (37-47); MEAN CELL VOLUME 90.2 fL (80-100); MEAN CORPUSCULAR HEMOGLOBIN 29.7 pg (25-34); MEAN CORPUSCULAR HGB CONC 32.9 g/dl (32-36); MEAN PLATELET VOLUME 9.4 fL (7.4-10.4); PLATELET COUNT 140 K/uL (130-400); RED BLOOD COUNT 2.56 M/uL (4.2-5.4)
[2017-04-22 07:49] LABS: INR 1.1 (0.9-1.1); PROTHROMBIN TIME (PATIENT) 11.6 SECONDS (9.0-12.0)
[2017-04-22] MEDS: CEFAZOLIN IV 1,000 MG in SYRINGE 0 ML IV SCH (07:58)
[2017-04-22 08:28] LABS: BUN/CREATININE RATIO 8.8 (10-20); CALCIUM 7.5 mg/dl (8.5-10.1); CREATININE 0.9 mg/dl (0.60-1.20); POTASSIUM 3.4 mmol/L (3.5-5.1)
[2017-04-22] MEDS: CARVEDILOL 6.25 MG TAB PO SCH ×2 (09:03→20:10)
[2017-04-22] MEDS: AMLODIPINE BESYLATE 5 MG TAB PO SCH (09:04)
[2017-04-22] MEDS ORDERED: POTASSIUM CHLORIDE 20 MEQ TABCR PO ONE (09:15)
--- NOTE | 2017-04-22 11:30 | Gastroenterology Progress Note ---
Progress Note Date of Service: Apr 22, 2017 Subjective Pt evaluation today including: conversation w/ patient, physical exam 86 years old female patient on Coumadin, admitted with hematochezia, underwent EGD and colonoscopy yesterday, no bleeding source identified except diverticulosis in the sigmoid colon. She feels finbe today, no further rectal bleeding since after the colonoscopy. Review of Systems Constitutional: No fever, No chills Respiratory: No cough, No sputum Cardiac: No chest pain, No orthopnea Abdomen: No pain, No nausea, No vomiting, No diarrhea, No constipation Female : No dysuria, No urinary frequency Medications Current Inpatient Medications Medications (Trade) Dose Ordered Sig/Marcela Route Start Time Stop Time Status Last Admin Dose Admin Acetaminophen (Tylenol Tab) 650 mg Q6H PRN PO 04/20/17 15:30 05/20/17 15:29 Al Hydrox/Mg Hydrox/Simethicone (Maalox Max Susp) 15 ml Q4H PRN PO 04/20/17 15:30 05/20/17 15:29 Magnesium Hydroxide (Milk Of Magnesia Susp) 30 ml Q12H PRN PO 04/20/17 15:30 05/20/17 15:29 Ondansetron HCl (Zofran Inj) 4 mg Q6H PRN IV 04/20/17 15:30 05/20/17 15:29 Polyethylene (Miralax Powder Packet) 17 gm DAILY PRN PO 04/20/17 15:30 05/20/17 15:29 Amlodipine Besylate (Norvasc Tab) 10 mg DAILY PO 04/21/17 09:00 05/21/17 08:59 04/22/17 09:04 10 MG Carvedilol (Coreg Tab) 6.25 mg BID PO 04/20/17 21:00 05/20/17 20:59 04/22/17 09:03 6.25 MG Levothyroxine Sodium (Synthroid Tab) 112 mcg DAILYBB PO 04/21/17 06:00 05/21/17 06:59 04/22/17 05:41 112 MCG Pravastatin Sodium (Pravachol Tab) 20 mg HS PO 04/20/17 21:00 05/20/17 20:59 04/21/17 20:23 20 MG Hydralazine HCl (HydrALAZINE INJ) 10 mg Q6 PRN IV. 04/20/17 15:45 05/20/17 15:44 Furosemide 20 mg/ Syringe 2 ml @ 4 mls/min TODAY@1200 IV 04/22/17 12:00 04/22/17 14:00 Potassium Chloride (Klor-Con Tab) 40 meq TODAY@1200 PO 04/22/17 12:00 04/22/17 12:01 Magnesium Oxide (Mag-Ox Tab) 400 mg TODAY@1200 PO 04/22/17 12:00 04/22/17 12:01 Pramipexole Dihydrochloride (miraPEX TAB) 0.5 mg HS PO 04/22/17 21:00 05/22/17 20:59 Objective Vital Signs Date Time Temp Pulse Resp B/P (MAP) Pulse Ox O2 Delivery O2 Flow Rate FiO2 04/22/17 10:38 36.4 67 18 139/73 98 04/22/17 10:08 36.5 59 18 147/69 97 04/22/17 08:00 Room Air 04/22/17 07:45 37.1 61 18 132/67 (88) 92 Room Air 04/22/17 04:22 95 Room Air 04/22/17 02:56 36.7 63 17 100/55 (70) 92 Room Air 04/22/17 00:19 95 Room Air 04/21/17 23:37 36.7 68 18 109/59 (76) 94 Room Air 04/21/17 20:00 95 Room Air 04/21/17 19:07 36.5 61 16 103/59 (74) 95 Room Air 04/21/17 16:22 Room Air 04/21/17 15:53 36.9 64 18 126/66 (86) 95 Room Air 04/21/17 15:13 61 16 103/46 (65) 96 Room Air 04/21/17 15:00 37.1 58 16 102/52 (69) 95 Room Air 04/21/17 14:55 77 16 94/45 (61) 97 Room Air 04/21/17 14:40 77 16 109/63 (78) 97 Room Air 04/21/17 13:00 37.1 62 20 111/61 (78) 96 Room Air 04/21/17 12:00 Room Air 04/21/17 11:44 37.1 66 20 119/59 (79) 94 Room Air Physical Exam General Appearance: no apparent distress Eyes: PERRL Neck: supple, trachea midline Respiratory/Chest: chest non-tender, lungs clear, normal breath sounds Cardiovascular: regular rate, rhythm Abdomen: normal bowel sounds, non tender, soft Neurologic/Psych: alert, oriented x 3 Laboratory Results Last 24 Hours Test 04/21/17 15:59 04/22/17 00:02 04/22/17 07:10 Hemoglobin 8.5 g/dL 7.7 g/dL 7.6 g/dL Hematocrit 25.5 % 22.7 % 23.1 % White Blood Count 3.80 K/uL Red Blood Count 2.56 M/uL Mean Corpuscular Volume 90.2 fL Mean Corpuscular Hemoglobin 29.7 pg Mean Corpuscular Hemoglobin Concent 32.9 g/dl RDW Standard Deviation 56.0 fL RDW Coefficient of Variation 17.2 % Platelet Count 140 K/uL Mean Platelet Volume 9.4 fL Prothrombin Time 11.6 SECONDS Prothromb Time International Ratio 1.1 Sodium Level 143 mmol/L Potassium Level 3.4 mmol/L Chloride Level 110 mmol/L Carbon Dioxide Level 27 mmol/L Anion Gap 6.0 mmol/L Blood Urea Nitrogen 8 mg/dl Creatinine 0.90 mg/dl Est Creatinine Clear Calc Drug Dose 51.3 ml/min Estimated GFR () 68.1 Estimated GFR (Non- 58.7 BUN/Creatinine Ratio 8.8 Random Glucose 92 mg/dl Calcium Level 7.5 mg/dl Assessment and Plan s/p LGIB, possible source is diverticulosis Vs Small bowel. Current H/H stable and no evidence of rebleeding. Recommendations: Advance diet as tolerated. Bleeding scan if any evidence of rebleeding. Decision about AC will be deferred to primary team to consider risk of recurrent GI bleeding Vs benefit of AC. Consider VCE electively if anemia persist. Please recall GI if any evidence of rebleeding or any concerns.
[2017-04-22] MEDS ORDERED: POTASSIUM CHLORIDE 20 MEQ TABCR PO SCH (12:00)
[2017-04-22] MEDS ORDERED: FUROSEMIDE INJ 20 MG in SYRINGE 0 ML IV SCH (12:00)
[2017-04-22] MEDS ORDERED: MAGNESIUM OXIDE 400 MG TAB PO SCH (12:00)
[2017-04-22 15:00] LABS: HEMATOCRIT 27.5 % (37-47)
[2017-04-22 19:07] LABS: HEMATOCRIT 27.5 % (37-47)
--- NOTE | 2017-04-22 19:08 | Progress Note ---
Subjective Date of Service: Apr 22, 2017. Subjective Pt evaluation today including: conversation w/ patient, conversation w/ family (daughter at bedside), physical exam, chart review, lab review, review of inpatient medication list Pain: no abd pain PO Intake: tolerating diet Voiding: no voiding problems tele stable overnight with paced rhythm pt "feeling good"; anxious to go home several bowel movements since yesterday with NO further bright red bleeding per rectum no nausea or emesis reports chronic insomnia with restless legs symptoms at home Problem List Medical Problems: (1) Elevated INR Status: Acute (2) GI bleed Status: Acute (3) Symptomatic anemia Status: Acute Review of Systems Constitutional: No fever Respiratory: No shortness of breath, No dyspnea on exertion Cardiac: No chest pain Abdomen: + diarrhea, No pain, No nausea, No vomiting, No constipation, No GI bleeding Female : No dysuria Objective Vital Signs Date Time Temp Pulse Resp B/P (MAP) Pulse Ox O2 Delivery O2 Flow Rate FiO2 04/22/17 16:00 Room Air 04/22/17 15:20 36.7 60 20 120/69 (86) 95 Room Air 04/22/17 12:50 36.8 60 18 115/66 96 04/22/17 12:38 36.8 60 18 96/59 95 04/22/17 12:00 Room Air 04/22/17 11:38 36.7 63 20 145/72 97 04/22/17 11:36 36.8 60 18 132/60 (84) 95 Room Air 04/22/17 10:38 36.4 67 18 139/73 98 04/22/17 10:08 36.5 59 18 147/69 97 04/22/17 08:00 Room Air 04/22/17 07:45 37.1 61 18 132/67 (88) 92 Room Air 04/22/17 04:22 95 Room Air 04/22/17 02:56 36.7 63 17 100/55 (70) 92 Room Air 04/22/17 00:19 95 Room Air 04/21/17 23:37 36.7 68 18 109/59 (76) 94 Room Air 04/21/17 20:00 95 Room Air 04/21/17 19:07 36.5 61 16 103/59 (74) 95 Room Air Physical Exam General Appearance: no apparent distress ENT: pharynx normal Neck: no JVD Respiratory/Chest: no respiratory distress, no accessory muscle use, + rales ( bases) Cardiovascular: regular rate, rhythm, no gallop, no murmur Abdomen: normal bowel sounds, non tender, soft, no organomegaly Extremities: no pedal edema Neurologic/Psychiatric: alert, oriented x 3 Skin: + pallor Laboratory Results Last 24 Hours Test 04/22/17 00:02 04/22/17 07:10 04/22/17 12:48 04/22/17 18:56 Hemoglobin 7.7 g/dL 7.6 g/dL 9.2 g/dL Hematocrit 22.7 % 23.1 % 27.5 % White Blood Count 3.80 K/uL Red Blood Count 2.56 M/uL Mean Corpuscular Volume 90.2 fL Mean Corpuscular Hemoglobin 29.7 pg Mean Corpuscular Hemoglobin Concent 32.9 g/dl RDW Standard Deviation 56.0 fL RDW Coefficient of Variation 17.2 % Platelet Count 140 K/uL Mean Platelet Volume 9.4 fL Prothrombin Time 11.6 SECONDS Prothromb Time International Ratio 1.1 Sodium Level 143 mmol/L Potassium Level 3.4 mmol/L Chloride Level 110 mmol/L Carbon Dioxide Level 27 mmol/L Anion Gap 6.0 mmol/L Blood Urea Nitrogen 8 mg/dl Creatinine 0.90 mg/dl Est Creatinine Clear Calc Drug Dose 51.3 ml/min Estimated GFR () 68.1 Estimated GFR (Non- 58.7 BUN/Creatinine Ratio 8.8 Random Glucose 92 mg/dl Calcium Level 7.5 mg/dl Assessment and Plan 86yo female with: 1. acute blood loss anemia 2nd to lower GI bleeding - H/H trended down this am again but she has not seen any additional BRBPR; the drop overnight could be dilutional. At any rate will Tx 1 additional unit of PRBCs. Repeat Hb 90 minutes after infusion is complete, then tonight, then again in AM. give lasix 20mg IV x 1 following infusion of PRBCs. 2. lower GI bleeding - exact etiology uncertain - colonoscopy w/ diverticulosis but no overt bleeding or signs of recent bleeding; small bowel AVM? Serial h/h's. 3. pacemaker status - s/p interrogation this admission - normal functioning pacer 4. underlying a fib on chronic coumadin - hold such for now 5. supratherapeutic INR - resolved 6. possible UTI - culture was negative, but u/a was quite suspicious for such. 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 8. hypokalemia - replace; repeat BMP am 9. hypomagnesemia - recheck mag in am 10. insomnia with restless legs - latter likely from iron deficiency - mirapex 0.5mg at HS. Replace Fe at discharge. 11. FEN - stop all fluids; BMP/mag AM; diet as tolerated. PT consult to ensure she will be safe for d/c home, when medically ready. keep on tele daughter updated Continued [facility] stay due to: multiple IV medications needed Discharge planning: home
[2017-04-22] MEDS: PRAVASTATIN SOD 20 MG TAB PO SCH (20:13)
[2017-04-22] MEDS: CEPHALEXIN MONOHYDRATE 500 MG CAP PO SCH (20:45)
[2017-04-22] MEDS ORDERED: PRAMIPEXOLE DIHYDROCHLORIDE 0.5 MG TAB PO SCH (21:00)
[2017-04-23] VITALS (7 sets, daily range): BP systolic 109–149; BP diastolic 55–73; PULSE 64–87; TEMP 36.5–37.1; O2SAT 92–96
[2017-04-23] MEDS: LEVOTHYROXINE 112 MCG TAB PO SCH (05:48)
[2017-04-23] MEDS: AMLODIPINE BESYLATE 5 MG TAB PO SCH (07:41)
[2017-04-23] MEDS: CARVEDILOL 6.25 MG TAB PO SCH (07:42)
[2017-04-23] MEDS: CEPHALEXIN MONOHYDRATE 500 MG CAP PO SCH (07:42)
[2017-04-23 07:49] LABS: HEMATOCRIT 27.6 % (37-47); MEAN CELL VOLUME 91.7 fL (80-100); MEAN CORPUSCULAR HEMOGLOBIN 29.2 pg (25-34); MEAN CORPUSCULAR HGB CONC 31.9 g/dl (32-36); PLATELET COUNT 168 K/uL (130-400); RED BLOOD COUNT 3.01 M/uL (4.2-5.4); WHITE BLOOD COUNT 5.11 K/uL (4.8-10.8)
[2017-04-23 08:37] LABS: BUN/CREATININE RATIO 11.5 (10-20); CALCIUM 7.8 mg/dl (8.5-10.1); CREATININE 0.83 mg/dl (0.60-1.20); MAGNESIUM 1.9 mg/dl (1.8-2.4); POTASSIUM 4.1 mmol/L (3.5-5.1)
[2017-04-23 13:08] LABS: HEMATOCRIT 29.8 % (37-47)
[2017-04-23] MEDS ORDERED: FRRS300 PO (14:42)
[2017-04-23] MEDS ORDERED: KFL500 PO (14:42)
--- NOTE | 2017-04-23 14:50 | Discharge Instructions ---
Discharge Instructions Date of Service Apr 23, 2017. Admission Reason for Admission: lower GI bleeding Discharge Discharge Diagnosis / Problem: lower GI bleeding - possibly from diverticular disease or the small bowel Discharge Goals Goal(s): Learn about illness, Diagnostic testing, Therapeutic intervention Activity Recommendations Activity Limitations: as noted below For the next 2-3 days "take it easy" as you transition home. Avoid excessive amounts of exertional activities (long walks, long outings from the home, etc). . Instructions / Follow-Up Instructions / Follow-Up From Dr. Griffith - 1. PLEASE REMAIN OFF YOUR COUMADIN FOR NOW. AT YOUR FOLLOW-UP APPOINTMENT WITH DR. ROACH'S OFFICE A DECISION CAN BE MADE ABOUT RESUMING IT AT THAT TIME. 2. Please avoid aspirin, motrin, ibuprofen, alleve, naprosyn until Dr. Roach says it is ok to do so. TYLENOL IS OK. 3. Please take daym-eoa-htesaeg iron (ferrous sulfate). Take 325mg twice daily with a glass of orange juice. Note that iron will make your stools dark and possibly cause constipation. 4. For possible UTI (urinary tract infection) take cephalexin 500mg twice a day for 3 days. Start this TONIGHT. 5. Please see Dr. Roach within 2-3 days. You will need a repeat CBC (blood count) at that time. 6. Return to [facility] if - * you see bright red blood in your stool * you notice black or tarry stools * you feel dizzy or lightheaded * you develop chest pain or shortness of breath * any other concerns 7. Our physical therapist recommended home physical therapy. We will arrange that for you tomorrow during regular business hours. They will ultimately come to your house to do therapy with you. Current Hospital Diet Patient's current hospital diet: Regular Diet Discharge Diet Recommended Diet: AHA Diet (Heart Healthy) Procedures Procedures Performed: EGD (upper endoscopy) - normal, no evidence of bleeding. Colonoscopy - diverticulosis but no active bleeding. No polyps or tumors. Pending Studies Studies pending at discharge: no Laboratory Results Lipid Panel Test 01/31/17 11:41 Range/Units Triglycerides Level 88 0-150 mg/dl Cholesterol Level 149 0-200 mg/dl HDL Cholesterol 61 mg/dl Cholesterol/HDL Ratio 2.4 LDL Cholesterol, Calculated 70 mg/dl Medical Emergencies . Who to Call and When: Medical Emergencies: If at any time you feel your situation is an emergency, please call 911 immediately. . Non-Emergent Contact Non-Emergency issues call your: Primary Care Provider Call Non-Emergent contact if: temperature is above 100.5, you have any medication questions . . "Provider Documentation" section prepared by Mata Griffith. . VTE Core Measure Inpt VTE Proph given/why not?: T.E.D. Stockings, SCD's, Contraindicated
== END 2017-04-23 15:00 | disposition home or self-care (01) | DRG 378 ==
LOC: C.EDB 13:19 → C.2T 15:24 → ENRESERV 15:35
PROVIDERS: ADMIT Internal Medicine; ATTEND Internal Medicine
PROC: 0DJ08ZZ Inspection of Upper Intestinal Tract, Via Natural or Artificial Opening Endoscopic (ICD-10-PCS; principal; 2017-04-21 12:52)
PROC: 0DJD8ZZ Inspection of Lower Intestinal Tract, Via Natural or Artificial Opening Endoscopic (ICD-10-PCS; principal; 2017-04-21 12:52)
DX: K57.31 Diverticulosis of large intestine without perforation or abscess with bleeding (principal); D62 Acute posthemorrhagic anemia; N39.0 Urinary tract infection, site not specified; D50.9 Iron deficiency anemia, unspecified; R79.1 Abnormal coagulation profile; T36.8X5A Adverse effect of other systemic antibiotics, initial encounter; E87.6 Hypokalemia; E83.42 Hypomagnesemia; K64.8 Other hemorrhoids; K22.2 Esophageal obstruction; K44.9 Diaphragmatic hernia without obstruction or gangrene; I48.0 Paroxysmal atrial fibrillation; I12.9 Hypertensive chronic kidney disease with stage 1 through stage 4 chronic kidney disease, or unspecified chronic kidney disease; N18.3 Chronic kidney disease, stage 3 (moderate); E78.5 Hyperlipidemia, unspecified; E03.9 Hypothyroidism, unspecified; G25.81 Restless legs syndrome; F51.04 Psychophysiologic insomnia; Z95.0 Presence of cardiac pacemaker; Z96.659 Presence of unspecified artificial knee joint; Z86.19 Personal history of other infectious and parasitic diseases; Z79.899 Other long term (current) drug therapy; Z79.01 Long term (current) use of anticoagulants

== ENCOUNTER → 2017-05-01 | Outpatient (CLI) | payer OTHER, MEDICARE ==
[~2017-05-01] MED LIST changes: +CALC-20 PO; -CALC600T PO; +FRRS300 PO; +KFL500 PO; -LEVO100T7 PO; +LEVO112T4 PO; -WARF-283 PO
[2017-05-01 17:43] LABS: BASO % 0.5 %; BASO ABS # 0.02 K/uL (0-0.2); COMPLETE YES; EOS % 1.8 %; HEMATOCRIT 38.8 % (37-47); LYMPH % 24.3 %; LYMPH ABS # 0.97 K/uL (1.2-3.4); MEAN CORPUSCULAR HEMOGLOBIN 31.3 pg (25-34); MEAN CORPUSCULAR HGB CONC 32.2 g/dl (32-36); MEAN PLATELET VOLUME 10.8 fL (7.4-10.4); MONO % 16.3 %; NEUT % 57.1 %; PLATELET COUNT 269 K/uL (130-400)
[2017-05-01 18:00] LABS: THYROID STIMULATING HORMONE 1.99 uIu/ml (0.300-4.500)
== END | disposition home or self-care (01) ==
LOC: C.LABBFT 14:17
PROVIDERS: ATTEND Physician Assistant Medical
DX: E03.9 Hypothyroidism, unspecified (principal); R19.7 Diarrhea, unspecified

== ENCOUNTER → 2017-05-08 | Outpatient (CLI) | payer OTHER, MEDICARE ==
[~2017-05-08] MED LIST changes: -AMLO-114 PO
[2017-05-08 12:25] LABS: BASO % 0.7 %; BASO ABS # 0.02 K/uL (0-0.2); COMPLETE YES; HEMATOCRIT 37.7 % (37-47); IG% 0.3 %; LYMPH % 27.4 %; LYMPH ABS # 0.81 K/uL (1.2-3.4); MEAN CELL VOLUME 96.9 fL (80-100); MEAN CORPUSCULAR HEMOGLOBIN 31.4 pg (25-34); MEAN CORPUSCULAR HGB CONC 32.4 g/dl (32-36); MEAN PLATELET VOLUME 10.2 fL (7.4-10.4); MONO % 22.3 %; NEUT % 47.3 %; PLATELET COUNT 198 K/uL (130-400); RED BLOOD COUNT 3.89 M/uL (4.2-5.4); WHITE BLOOD COUNT 2.96 K/uL (4.8-10.8)
[2017-05-08 12:45] LABS: BLOOD UREA NITROGEN 22 mg/dl (7-18); CALCIUM 8.9 mg/dl (8.5-10.1); CARBON DIOXIDE 30 mmol/L (21-32); CHLORIDE 100 mmol/L (98-107); CREATININE 0.98 mg/dl (0.60-1.20); GLUCOSE 107 mg/dl (70-99); POTASSIUM 3.9 mmol/L (3.5-5.1); SODIUM 137 mmol/L (136-145)
== END | disposition home or self-care (01) ==
LOC: C.LABBFT 11:03
PROVIDERS: ATTEND Internal Medicine
DX: D50.0 Iron deficiency anemia secondary to blood loss (chronic) (principal)

== ENCOUNTER → 2017-06-15 | Outpatient (CLI) | payer OTHER, MEDICARE ==
[2017-06-15 17:26] LABS: HEMATOCRIT 39.3 % (37-47); HEMOGLOBIN 12.9 g/dL (12.0-16.0); MEAN CELL VOLUME 93.8 fL (80-100); MEAN CORPUSCULAR HEMOGLOBIN 30.8 pg (25-34); MEAN CORPUSCULAR HGB CONC 32.8 g/dl (32-36); PLATELET COUNT 199 K/uL (130-400); RED CELL DISTRIBUTION WIDTH CV 15.3 % (11.5-14.5); RED CELL DISTRIBUTION WIDTH SD 52.2 fL (36.4-46.3); WHITE BLOOD COUNT 3.76 K/uL (4.8-10.8)
[2017-06-15 17:33] LABS: ALBUMIN 3.6 gm/dl (3.4-5.0); ALT/SGPT 16 U/L (12-78); BLOOD UREA NITROGEN 21 mg/dl (7-18); CALCIUM 9.1 mg/dl (8.5-10.1); CARBON DIOXIDE 29 mmol/L (21-32); CHOLESTEROL 139 mg/dl (0-200); CREATININE 0.93 mg/dl (0.60-1.20); GLUCOSE 94 mg/dl (70-99); POTASSIUM 3.6 mmol/L (3.5-5.1); SODIUM 137 mmol/L (136-145)
[2017-06-15 17:44] LABS: ALKALINE PHOSPHATASE 103 U/L (45-117); AST/SGOT 21 U/L (15-37); LDL CHOLESTEROL CALCULATED 57 mg/dl; TOTAL PROTEIN 8.1 gm/dl (6.4-8.2)
== END | disposition home or self-care (01) ==
LOC: C.LABBFT 11:35
PROVIDERS: ATTEND Internal Medicine
DX: E03.9 Hypothyroidism, unspecified (principal); E78.00 Pure hypercholesterolemia, unspecified; D50.0 Iron deficiency anemia secondary to blood loss (chronic)